=== PATIENT | male | born 1940 | race Caucasian/White ===

== ENCOUNTER → 2019-05-12 | Outpatient (CLI) | payer MEDICARE | END | disposition home or self-care (01) | LOC: LABWHC1 14:35 | PROVIDERS: ATTEND Orthopaedic Surgery | DX: Z01.812 Encounter for preprocedural laboratory examination (principal) | CPT/HCPCS: 87070 ==

== ENCOUNTER 2019-05-18 10:48 | Inpatient (IN) | payer BC, MEDICARE ==
[2019-05-08 11:53] VITALS: BMI 23.7
--- NOTE | 2019-05-17 17:56 | HP ---
HISTORY AND PHYSICAL REASON FOR ADMISSION: Surgery is scheduled for 05/18/2019 Donis Marin is an 79-year-old patient seen with symptomatic left knee osteoarthritis. We discussed options for treatment. He elected to proceed with left total knee arthroplasty. Consent regarding the procedure was obtained. Medical clearance was provided by Dr. Darryl Marmolejo. PAST MEDICAL HISTORY: Hypertension. PAST SURGICAL HISTORY: Jaw surgery. Hip surgery. MEDICATIONS: Daily medications: Metoprolol, Joiner, aspirin. ALLERGIES: None. SOCIAL HISTORY: Denies current tobacco use. PHYSICAL EXAMINATION: Evaluation of the left knee: His range of motion is -2/3-130. Tenderness along the lateral joint line crepitus, lateral patellofemoral compartments. Pain with patellofemoral compression. His collateral ligaments are stable. Hip rotation is slightly limited, but no pain. Distal neurovascular exam is intact. RADIOGRAPHS: Radiographs of the left knee reveal severe lateral and moderate patellofemoral compartment osteoarthritis. IMPRESSION: 1. Left knee osteoarthritis. 2. Hypertension. PLAN: Left total knee arthroplasty. Surgery is scheduled for 05/18/2019. MMODL / IJN: [id number] /
[~2019-05-18 10:48] MED LIST: ACETAMINOPHEN TAB 500 MG TAB PO ONE; HYDROmorphone 0.5 MG/0.5 ML SYRINGE IVP PRN; LIDOCAINE 1% 20 ML VIAL (10MG/ML) FOR IV START INTRADERMA PRN; MELOXICAM 7.5 MG TAB PO ONE; MIDAZOLAM 2 MG/2 ML VIAL IV PRN; ROPIVACAINE 246.25 MG, EPINEPHrine 0.5 MG, KETOROLAC 30 MG, cloNIDine HCL/PF 80 MCG, WA... MISCELLANE ONE; TRANEXAMIC ACID 1,000 MG in SODIUM CHLORIDE 0.9% 100 ML IVPB ONE
[2019-05-18] MEDS: LACTATED RINGERS 1,000 ML IV SCH ×3 (11:30→22:33)
[2019-05-18] MEDS ORDERED: ONDANSETRON 4 MG/2 ML VIAL IVP ONE (11:45)
[2019-05-18] MEDS ORDERED: DEXAMETHASONE SOD PHOSPHATE 10 MG/ML 1 ML VIAL IV ONE (11:46)
[2019-05-18] MEDS ORDERED: MIDAZOLAM (PF) 2 MG/2 ML VIAL IVP ONE (11:52)
[2019-05-18] MEDS ORDERED: fentaNYL (PF) 50 MCG/ML 2 ML AMP IVP ONE (11:53)
[2019-05-18] MEDS ORDERED: fentaNYL (PF) 50 MCG/ML 2 ML AMP ONE (12:24)
[2019-05-18] MEDS ORDERED: TRANEXAMIC ACID 1,000 MG/10 ML VIAL ONE (12:24)
[2019-05-18] MEDS ORDERED: MIDAZOLAM 2 MG/2 ML VIAL ONE (12:24)
[2019-05-18] MEDS ORDERED: SODIUM CHLORIDE 0.9% 100 ML BAG ONE (12:24)
[2019-05-18] MEDS ORDERED: ceFAZolin 3,000 MG in SODIUM CHLORIDE 0.9% IRRIGATIO 3,000 ML IRRIGATION ONE (12:28)
[2019-05-18] MEDS ORDERED: ROPIVACAINE 0.2%-NS ON-Q PUMP 1,090 MG, EMPTY PAIN BALL 1 EACH MISCELLANE PRN (13:11)
--- NOTE | 2019-05-18 13:14 | P.ANPRN ---
Procedure Note - Anesthesia - Nerve Block Performed Left Adductor Canal Infusion Time Out Performed: Yes Date of Procedure: 05/18/19 Procedure Start Time: 11:51 Location of Patient Procedure: PreOp Indication: Acute Post-Operative Pain, Requested by Surgeon Specifically requested for management of pain by DrMary Ann: Edmund Lazo Sedation Type: Sedate with meaningful contact maintained Preparation: Sterile Prep Position: Supine Catheter Depth at Skin (cm): 7 Catheter: Indwelling Needle Types: Pajunk Needle Gauge: 18 Ultrasound used to visualize needle placement: Yes Ultrasound used to observe medication spread: Yes Injectate: 0.5% Ropivacaine (see comment for volume) (20cc) Blood Aspirated: No Pain Paresthesia on Injection Noted: No Resistance on Injection: Normal Image Stored and Saved: Yes Events: Uneventful and Well Tolerated
--- NOTE | 2019-05-18 14:32 | P.OP ---
Date of Procedure: 05/18/19 Preoperative Diagnosis: Left knee osteoarthritis Postoperative Diagnosis: Left knee osteoarthritis Procedure(s) Performed: Left total knee arthroplasty Implants: 1. Microport evolution size 7 left cemented femur 2. Microport evolution size 7 left cemented tibial baseplate 3. Microport evolution size 7 left MP 10 mm polyethylene tibial insert 4. Microport advance 38 mm all polyethylene cemented patella Anesthesia: regional (Adductor canal catheter), local, spinal Surgeon: Edmund Lazo Commodity Analyst #1: Pepito Liriano Estimated Blood Loss (ml): 45 Pathology: other (Bone) Condition: stable Disposition: PACU Indications for Procedure: 79-year-old patient seen with symptomatic left knee osteoarthritis. After treatment options were discussed with him, he elected to proceed with total knee arthroplasty. Operative Findings: See description of procedure Description of Procedure: Patient was taken to the operative suite after having an adductor canal catheter placed by the department of anesthesia for postoperative pain management. Patient underwent a spinal anesthetic by the department of anesthesia. Patient was given preoperative IV intake antibiotics and TXA. A well-padded tourniquet was placed about the left lower extremity. The lower extremity was then prepped and draped in the normal sterile orthopedic fashion. The extremity was elevated, a tourniquet was insufflated to 300. A standard anterior incision was made sharply through skin. Dissection was taken down through the subcutaneous soft tissues down to the extensor mechanism. A medial arthrotomy was performed, patella was everted and knee was flexed. There was advanced osteoarthritis noted. I introduced my distal intramedullary femoral drill. I then introduced the distal femoral cutting jig. Harry THIBODEAUX secured the cutting jig with 2 pins. I held retractors in position while Harry THIBODEAUX performed the distal femoral resection through the guide area we now removed her distal femoral cutting guide. We now placed our 4-in-1 femoral cutting block and positioned and it was secured with 2 pins by Harry THIBODEAUX while I held the block in position. The distal femoral finishing was now completed. A proximal tibial cutting guide was positioned. I held the guide in the appropriate position with both hands well Harry THIBODEAUX inserted stabilizing pins into the guide. Proximal tibial cut was made. We now placed a trial femoral component into position, along with an appropriate size tibial tray and insert. We now took the knee through range of motion and had full extension good flexion and good overall soft tissue balance noted. The patella was everted and stabilized with 2 towel clips held by Harry THIBODEAUX while I performed a flush with patellar quad tendon utilizing a fresh sawblade. We templated the patella, appropriate drill holes were made. An appropriate trial patella was positioned, knee was taken through full range of motion with the patella tracking very nicely. The trial patella was removed. Drill holes were made through the femoral component. All trial components were removed after marking off the appropriate rotation of the tibia. Retractors were now positioned along the proximal tibia. An appropriate keel punch was made with the appropriate size tibial guide by myself on Harry THIBODEAUX assisted by holding retractors. At this point appropriate size implants were chosen and opened. The joint was irrigated copiously with pulse lavage mechanical irrigation. The posterior capsule was infiltrated with local analgesic. The wound was irrigated with pulse lavage mechanical irrigation. We mixed antibiotic methylmethacrylate. We placed the knee into flexion. We placed multiple retractors assisted by Harry THIBODEAUX to expose the proximal tibia. Once the methyl methacrylate was ready, the tibial component was cemented into place removing any excess methylmethacrylate form by both myself and Harry THIBODEAUX. The femoral component was cemented into place removing the removing any excess methylmethacrylate performed by both myself and Harry THIBODEAUX. We then inserted the appropriate size polyethylene tibial insert. We made sure that it was locked into position. We took the knee into full extension, and then back in a flexion making sure we had removed any excess methylmethacrylate. The patellar component was then cemented down and secured with clamp. Excess methylmethacrylate removed. We kept the knee in full extension, patellar clamp in position until methylmethacrylate had hardened. Once it had hardened the patellar clamp was removed. The knee was taken through full range of motion. The patella tracked nicely. There was good soft tissue balancing. The tourniquet was now released. Additional hemostasis was achieved via electrocautery. A second gram of TXA was given. The wound again was irrigated with pulse lavage mechanical irrigation. The superficial soft tissues were infiltrated local analgesic. The extensor mechanism was repaired with Vicryl. We checked the repair with range of motion and it was stable. The subcutaneous soft tissues were repaired with Vicryl in layers. The skin was approximated with pernio/Dermabond. Sterile dressings were applied followed by loose web roll and Nathan bandage. The patient was transferred to a bed, and taken to recovery in stable and satisfactory condition. Harry THIBODEAUX assisted with this complex procedure.
[2019-05-18] MEDS ORDERED: NALOXONE 0.4 MG/ML 1 ML VIAL IV PRN (14:33)
[2019-05-18] MEDS ORDERED: ONDANSETRON 4 MG/2 ML VIAL IVP PRN (14:33)
[2019-05-18] MEDS ORDERED: HYDROmorphone 0.5 MG/0.5 ML SYRINGE IVP PRN ×2 (14:33)
--- NOTE | 2019-05-18 15:59 | XR ---
Limited left knee HISTORY: Status post left knee arthroplasty 2 views the left knee Patient is status post left knee arthroplasty. There is anatomic alignment. Lucency in the soft tissu es is compatible with postop state. Vascular calcifications noted incidentally. IMPRESSION: Orthopedic follow-up.
[2019-05-18] MEDS: SENNOSIDES-DOCUSATE SODIUM 1 EACH TAB PO SCH (21:58)
[2019-05-18] MEDS: METOPROLOL TARTRATE 50 MG TAB PO SCH (21:58)
[2019-05-18] MEDS: SODIUM CHLORIDE 0.9% 1,000 ML IV SCH (23:44)
[2019-05-19 06:45] LABS: Basophils % (A) 0 %; Eosinophils % (A) 0 %; HCT 34.9 % (39.0-53.0); HGB 10.9 gm/dL (13.0-17.5); Lymphocytes # (A) 1.1 k/uL (1.0-4.8); Lymphocytes % (A) 12 %; MCH 30.3 pg (25.0-35.0); MCHC 31.4 g/dL (31.0-37.0); MCV 96.7 fL (80.0-100.0); Mean Platelet Volume 7.5; Monocytes # (A) 0.5 k/uL (0-1.0); Monocytes % (A) 5 %; Neutrophils # (A) 7.5 k/uL (1.3-7.7); Neutrophils % (A) 81 %; Platelet Count 200 k/uL (150-450); RBC 3.61 m/uL (4.30-5.90); RDW 12.8 % (11.5-15.5); WBC 9.2 k/uL (3.8-10.6)
--- NOTE | 2019-05-19 07:10 | P.PN ---
Progress Note - Text 05/19 650am 79-year-old male status post total knee replacement by Dr. Lazo. Patient has an On-Q pump for postop pain control with the solution running at 8 mL an hour and a VAS of 5. Plan is to continue On-Q pump infusion.
[2019-05-19] MEDS: HYDROcodone/APAP 7.5-325MG 1 EACH TAB PO PRN ×3 (08:24→20:08)
[2019-05-19] MEDS: MELOXICAM 7.5 MG TAB PO SCH (08:24)
[2019-05-19] MEDS: ENOXAPARIN 40 MG/0.4 ML SYRINGE SQ SCH (08:24)
[2019-05-19] MEDS: METOPROLOL TARTRATE 50 MG TAB PO SCH ×2 (08:25→20:07)
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
[2019-05-19] MEDS: SODIUM CHLORIDE 0.9% 1,000 ML IV SCH (10:20)
[2019-05-19] MEDS: LACTATED RINGERS 1,000 ML IV SCH (10:20)
--- NOTE | 2019-05-19 12:57 | P.PN ---
Subjective Progress Note Date: 05/19/19 Principal diagnosis: Status post left total knee arthroplasty Patient evaluated today at bedside, he is resting comfortably. He does note some discomfort in the knee. He is ambulating well with therapy, he has not done the stairs. Denies any chest pain or shortness of breath. Objective - Vital Signs Vital signs: Vital Signs Temp 97.7 F 05/19/19 07:00 Pulse 60 05/19/19 07:00 Resp 12 05/19/19 07:00 BP 164/62 05/19/19 07:00 Pulse Ox 95 05/19/19 07:00 Intake & Output 05/18/19 05/19/19 05/19/19 18:59 06:59 18:59 Intake Total 1101 100 Output Total 45 750 Balance 1056 -750 100 Intake: IV 1101 Oral 100 Output: Urine 750 Estimated Blood Loss 45 Other: Voiding Method Urinal # Voids 2 - Exam Left lower extremity: Incision is clean, dry, and intact. The exofin fusion tape is in good c ondition. There is minimal soft tissue swelling and ecchymosis surrounding the medial and lateral aspects of the incision. Calf is soft, no tenderness with palpation. Plantar flexion, dorsiflexion, EHL, FHL are intact. Sensory exam to light touch throughout the extremity is intact, dorsal pedis pulses 2+. - Labs CBC & Chem 7: 05/19/19 06:19 Labs: Abnormal Lab Results - Last 24 Hours (Table) 05/19/19 Range/Units 06:19 RBC 3.61 L (4.30-5.90) m/uL Hgb 10.9 L (13.0-17.5) gm/dL Hct 34.9 L (39.0-53.0) % Assessment and Plan Plan: Assessment: Postop day #1 status post left total knee arthroplasty Plan: Pain control, continue oral medication as needed GI and DVT prophylaxis, continue current medication Wound care instructions discussed Encourage incentive spirometer Continue working with physical therapy Medical recommendations Discharge planning: Hopeful discharge home tomorrow Time with Patient: Less than 30
[2019-05-19] MEDS: HYDROmorphone 0.5 MG/0.5 ML SYRINGE IVP PRN (17:46)
[2019-05-19] MEDS: SENNOSIDES-DOCUSATE SODIUM 1 EACH TAB PO SCH (20:08)
[2019-05-20] MEDS: HYDROmorphone 0.5 MG/0.5 ML SYRINGE IVP PRN (01:17)
[2019-05-20] MEDS: HYDROcodone/APAP 7.5-325MG 1 EACH TAB PO PRN ×3 (06:26→19:35)
[2019-05-20] MEDS: METOPROLOL TARTRATE 50 MG TAB PO SCH ×2 (08:52→19:37)
[2019-05-20] MEDS: MELOXICAM 7.5 MG TAB PO SCH (08:52)
[2019-05-20] MEDS: ENOXAPARIN 40 MG/0.4 ML SYRINGE SQ SCH (08:52)
[2019-05-20] MEDS: SODIUM CHLORIDE 0.9% 1,000 ML IV SCH (08:58)
--- NOTE | 2019-05-20 11:40 | P.PN ---
Subjective Progress Note Date: 05/20/19 Principal diagnosis: Status post left total knee arthroplasty Patient evaluated today at bedside, he is resting comfortably. He does note some discomfort in the knee. I did increase the oral pain medication He is ambulating well with therapy, he has not done the stairs. Denies any chest pain or shortness of breath. Objective - Vital Signs Vital signs: Vital Signs Temp 98.2 F 05/20/19 07:00 Pulse 71 05/20/19 08:00 Resp 14 05/20/19 07:00 BP 145/58 05/20/19 07:00 Pulse Ox 95 05/20/19 07:00 Intake & Output 05/19/19 05/20/19 05/20/19 18:59 06:59 18:59 Intake Total 100 Output Total 1025 Balance 100 -1025 Intake: Oral 100 Output: Urine 1025 Other: Voiding Method Urinal # Voids 3 - Exam Left lower extremity: Incision is clean, dry, and intact. The exofin fusion tape is in good condition. There is minimal soft tissue swelling and ecchymosis surrounding the medial and lateral aspects of the incision. Calf is soft, no tenderness with palpation. Plantar flexion, dorsiflexion, EHL, FHL are intact. Sensory exam to light touch throughout the extremity is intact, dorsal pedis pulses 2+. - Labs CBC & Chem 7: 05/19/19 06:19 Assessment and Plan Plan: Assessment: Postop day #2 status post left total knee arthroplasty Plan: Pain control, did increase oral pain medication GI and DVT prophylaxis, continue current medication Wound care instructions discussed Encourage incentive spirometer Continue working with physical therapy Medical recommendations Discharge planning: Hopeful discharge home today Time with Patient: Less than 30
[2019-05-20] MEDS: LACTATED RINGERS 1,000 ML IV SCH (13:02)
[2019-05-20] MEDS: SENNOSIDES-DOCUSATE SODIUM 1 EACH TAB PO SCH (19:37)
[2019-05-21] MEDS: SODIUM CHLORIDE 0.9% 1,000 ML IV SCH ×2 (03:00→22:40)
[2019-05-21] MEDS: HYDROcodone/APAP 7.5-325MG 1 EACH TAB PO PRN (04:41)
[2019-05-21 07:18] LABS: Basophils % (A) 0 %; Eosinophils # (A) 0.1 k/uL (0-0.7); Eosinophils % (A) 2 %; HGB 11.7 gm/dL (13.0-17.5); Lymphocytes # (A) 1.1 k/uL (1.0-4.8); Lymphocytes % (A) 14 %; MCH 32.1 pg (25.0-35.0); MCHC 33.5 g/dL (31.0-37.0); MCV 95.9 fL (80.0-100.0); Mean Platelet Volume 7.5; Monocytes # (A) 0.5 k/uL (0-1.0); Monocytes % (A) 7 %; Neutrophils # (A) 5.8 k/uL (1.3-7.7); Neutrophils % (A) 76 %; Platelet Count 205 k/uL (150-450); RBC 3.65 m/uL (4.30-5.90); RDW 12.8 % (11.5-15.5); WBC 7.7 k/uL (3.8-10.6)
[2019-05-21] MEDS: MELOXICAM 7.5 MG TAB PO SCH (07:59)
[2019-05-21] MEDS: METOPROLOL TARTRATE 50 MG TAB PO SCH ×2 (08:00→20:28)
[2019-05-21] MEDS: ENOXAPARIN 40 MG/0.4 ML SYRINGE SQ SCH (08:00)
[2019-05-21] MEDS ORDERED: IBUPROFEN 600 MG TAB PO PRN (10:03)
--- NOTE | 2019-05-21 11:12 | P.PN ---
Subjective Progress Note Date: 05/21/19 Principal diagnosis: Status post left total knee arthroplasty Patient evaluated today at bedside. Patient's pain is improved since yesterday. 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 He is interested in staying at a rehab facility for a short period time. Denies any chest pain or shortness of breath. Objective - Vital Signs Vital signs: Vital Signs Temp 98 F 05/21/19 07:00 Pulse 69 05/21/19 07:00 Resp 16 05/21/19 07:00 BP 133/65 05/21/19 07:00 Pulse Ox 94 L 05/21/19 07:00 Intake & Output 05/20/19 05/21/19 05/21/19 18:59 06:59 18:59 Output Total 500 Balance -500 Output: Urine 500 Other: Voiding Method Toilet Urinal # Voids 3 1 - Exam Left lower extremity: Incision is clean, dry, and intact. The exofin fusion tape is in good conditio n. There is minimal soft tissue swelling and ecchymosis surrounding the medial and lateral aspects of the incision. Calf is soft, no tenderness with palpation. Plantar flexion, dorsiflexion, EHL, FHL are intact. Sensory exam to light touch throughout the extremity is intact, dorsal pedis pulses 2+. - Labs CBC & Chem 7: 05/21/19 07:00 Labs: Abnormal Lab Results - Last 24 Hours (Table) 05/21/19 Range/Units 07:00 RBC 3.65 L (4.30-5.90) m/uL Hgb 11.7 L (13.0-17.5) gm/dL Hct 35.0 L (39.0-53.0) % Assessment and Plan Plan: Assessment: Postop day #3 status post left total knee arthroplasty Plan: Pain control, did increase oral pain medication GI and DVT prophylaxis, continue current medication Wound care instructions discussed Encourage incentive spirometer Continue working with physical therapy Medical recommendations Discharge planning: Discussed with case management for rehab placement, this is in the works Time with Patient: Less than 30
[2019-05-21] MEDS: HYDROcodone/APAP 5-325MG 1 EACH TAB PO PRN ×2 (13:05→20:28)
[2019-05-21] MEDS: LACTATED RINGERS 1,000 ML IV SCH (14:12)
--- NOTE | 2019-05-21 19:11 | P.PN ---
Subjective Progress Note Date: 05/21/19 Status post left total knee arthroplasty Donis Marin is an 79 yo M with PMH of OA, HTN. He is POD#1 after a scheduled L TKA. He tolerated the procedure well and has been ambulatory today. Pain is well controlled with [place]. He does endorse discomfort with knee flexion. Denies fever, chills, shortness of breath, leg swelling or tenderness. 05/21/2019 sitting up in chair, pain control improving. Denies chest pain, palpitations or shortness of breath. Vital signs stable. Afebrile. Concerned about going home and requesting subacute rehab. Objective - Vital Signs Vital signs: Vital Signs Temp 98 F 05/21/19 07:00 Pulse 69 05/21/19 07:00 Resp 16 05/21/19 07:00 BP 133/65 05/21/19 07:00 Pulse Ox 94 L 05/21/19 07:00 Intake & Output 05/20/19 05/21/19 05/21/19 18:59 06:59 18:59 Output Total 500 Balance -500 Output: Urine 500 Other: Voiding Method Toilet Urinal # Voids 3 1 - Exam General: well nourished, well developed, NAD. Vitals reviewed Eyes: PERRL, EOMI, conjunctiva normal HENT: normocephalic, mucus membranes moist Neck: supple, no JVD Lungs: normal respiratory effort, no wheezes or rales CV: Regular rate and rhythm, no murmur. Peripheral pulses 2+ Abdomen: soft, nondistended, no organomegaly Lymph: no cervical or axillary LAD MSK: LLE incision c/d/i. No edema Skin: warm and dry. Neuro: A&Ox3, normal mood and affect - Labs CBC & Chem 7: 05/21/19 07:00 Labs: Abnormal Lab Results - Last 24 Hours (Table) 05/21/19 Range/Units 07:00 RBC 3.65 L (4.30-5.90) m/uL Hgb 11.7 L (13.0-17.5) gm/dL Hct 35.0 L (39.0-53.0) % Assessment and Plan Assessment: (1) Hypertension Current Visit: Yes Status: Acute Code(s): I10 - ESSENTIAL (PRIMARY) HYPERTENSION SNOMED Code(s): 09699990 (2) History of DVT (deep vein thrombosis) Current Visit: Yes Status: Acute Code(s): Z86.718 - PERSONAL HISTORY OF OTHER VENOUS THROMBOSIS AND EMBOLISM SNOMED Code(s): 229859142 (3) Osteoarthritis of left knee Current Visit: Yes Status: Acute Code(s): M17.12 - UNILATERAL PRIMARY OSTEOARTHRITIS, LEFT KNEE SNOMED Code(s): 827083879499812 (4) Status post total left knee replacement Current Visit: Yes Status: Acute Code(s): Z96.652 - PRESENCE OF LEFT ARTIF ICIAL KNEE JOINT SNOMED Code(s): 4587895124650 Plan: Continue on current medication regime ,monitoring and symptomatic treatment. PT/OT. Pain management/anticoagulation as per orthopedic surgery. Motrin added to med regime if okay with orthopedics. Discharge planning in progress as per primary. Follow-up with PCP in one week after discharge from subacute rehab. The impression and plan of care has been dictated as directed. : I performed a history and examination of this patient, discussed the same with the dictator. I agree with the dictator's note ,documented as a scribe. Any additional findings or plans will be noted.
[2019-05-21] MEDS: SENNOSIDES-DOCUSATE SODIUM 1 EACH TAB PO SCH (20:29)
[2019-05-22 03:17] VITALS: RESP 16
[2019-05-22] MEDS: HYDROcodone/APAP 5-325MG 1 EACH TAB PO PRN (06:15)
[2019-05-22 08:00] VITALS: BP 161/60; PULSE 81; TEMP 97.5
[2019-05-22] MEDS: METOPROLOL TARTRATE 50 MG TAB PO SCH (08:45)
[2019-05-22] MEDS: ENOXAPARIN 40 MG/0.4 ML SYRINGE SQ SCH (08:46)
[2019-05-22] MEDS: MELOXICAM 7.5 MG TAB PO SCH (08:46)
[2019-05-22] MEDS ORDERED: guaiFENesin 600 MG TABLET.ER PO PRN (10:23)
[2019-05-22] MEDS: HYDROcodone/APAP 7.5-325MG 1 EACH TAB PO PRN (12:04)
--- NOTE | 2019-05-22 12:27 | P.PN ---
Subjective Progress Note Date: 05/22/19 Principal diagnosis: Status post left total knee arthroplasty Patient evaluated today at bedside. Patient's pain has continued to improve. Denies any chest pain or shortness of breath. Objective - Vital Signs Vital signs: Vital Signs Temp 97.5 F L 05/22/19 07:00 Pulse 81 05/22/19 07:00 Resp 16 05/22/19 07:00 BP 161/60 05/22/19 07:00 Pulse Ox 95 05/22/19 07:00 Intake & Output 05/21/19 05/22/19 05/22/19 18:59 06:59 18:59 Intake Total 236 Output Total 400 570 Balance -164 -570 Intake: Oral 236 Output: Urine 400 570 Other: Voiding Method Toilet Urinal # Voids 1 - Exam Left lower extremity: Incision is clean, dry, and intact. The exofin fusion tape is in good condition. There is minimal soft tissue swelling and ecchymosis surrounding the medial and lateral aspects of the incision. Calf is soft, no tenderness with palpation. Plantar flexion, dorsiflexion, EHL, FHL are intact. Sensory exam to light touch throughout the extremity is intact, dorsal pedis pulses 2+. - Labs CBC & Chem 7: 05/21/19 07:00 Assessment and Plan Plan: Assessment: Postop day #4 status post left total knee arthroplasty Plan: Pain control, discharge on [place] 7.5/325 GI and DVT prophylaxis, aspirin 81 mg twice a day Wound care instructions discussed Encourage incentive spirometer Continue working with physical therapy Medical recommendations Discharge planning: Discharge to rehab today Time with Patient: Less than 30
--- NOTE | 2019-05-22 12:30 | P.DS ---
Providers Date of admission: 05/18/2019 Expected date of discharge: 05/22/19 Attending physician: Edmund Lazo Consults: 05/18/19 14:33 Consult Physician Routine Consulting Provider: Darryl Marmolejo Reason/Comments: Medical management Do you want consulting provider notified?: Yes Primary care physician: Paul Eli Hospital Course: Date of admission: 05/18/2019 Date of discharge: 05/22/2019 Admission diagnosis: Status post left total knee arthroplasty Discharge diagnosis: Same Attending physician: Dr. Lazo Surgical procedures: Left total knee arthroplasty Brief history: Patient is a 79-year-old male with a history of progressive primary left knee osteoarthritis. At this point patient has failed conservative treatment measures and has opted to proceed with a elective left total knee arthroplasty. Hospital course: Details of patient's surgery can be found in operative report. Patient tolerated the procedure well and was subsequently transported to orthopedic floor. Patient's orthopeidc and medical care was provided daily. Patient had daily laboratory tests performed for evaluation of overall blood counts. Patient had daily physical therapy to include strengthening range of motion as well as education with walker ambulation. Patient had daily CPM usage as part of their physical therapy program. Patient was treated with Lovenox for their postoperative DVT prophylaxis during their inpatient stay. Patient was noted to have a relatively uneventful postoperative course. Patient reported satisfactory pain control with oral pain medications by postoperative day 0. Patient showed satisfactory progress with physical therapy. Patient moved steadily through the program and had no difficulty meeting the goals by postoperative day 3. Given patient's otherwise satisfactory course and having met physical therapy goals, plan is to discharge patient to rehab on postoperative day 4. Discharge condition/disposition: Patient will be discharged rehab in stable condition. Discharge medications: Instructions are given on resumption of patient's normal daily medications per primary care recommendation, in addition patient will be prescribed [place] 7.5 mg/325 mg, Colace 100 mg, Pepcid 20 mg, aspirin 81 mg. Discharge instructions: 1. Wound care and infection precautions, keep incision dry and covered while showering, no lotions, creams, moisturizers. No soaking, tubs, pools, hottubs. Do not scrub over the incision. 2. Weight-bear as tolerated with walker / cane until follow-up. 3. Ice and elevate when necessary. Do not exceed 20 minutes per hour with ice pack. 4. Utilize compression sleeve until seen at first follow up appointment. 5. Visiting nursing care. 6. Home physical therapy. 7. Pain meds and anticoagulants per prescription. 8. Pain medication has potential to cause constipation. Increase oral fluid and fiber intake. Contact primary care provider if you have not had a bowel movement within 48 hours after discharge 9. No anti-inflammatory medication until discussed at first post operative visit, this including Motrin, Aleve, Mobic, Diclofenac. 10. Follow up in office at 2 weeks postop with Harry Liriano PA-C 11. Follow up with your primary care doctor 7-10 days after discharge. 12. Contact [facility] with any questions, . Procedures: Left total knee arthroplasty Patient Condition at Discharge: Good Plan - Discharge Summary Discharge Rx Participant: Yes New Discharge Prescriptions: New guaiFENesin [Mucinex] 600 mg PO Q12HR PRN tablet.er PRN Reason: Cough Aspirin [Adult Low Dose Aspirin EC] 81 mg PO BID #60 tablet. Docusate [Colace] 100 mg PO DAILY #30 capsule HYDROcodone/APAP 7.5-325MG [[place] 7.5] 1 - 2 each PO Q6HR PRN #56 tab PRN Reason: Pain Famotidine [Pepcid] 20 mg PO DAILY #30 tablet Continue Aspirin 81 mg PO DAILY Metoprolol Tartrate [Lopressor] 100 mg PO QAM Metoprolol Tartrate [Lopressor] 50 mg PO HS Discharge Medication List Aspirin 81 mg PO DAILY 04/11/15 [History] Metoprolol Tartrate [Lopressor] 50 mg PO HS 05/08/19 [History] Metoprolol Tartrate [Lopressor] 100 mg PO QAM 05/08/19 [History] Aspirin [Adult Low Dose Aspirin EC] 81 mg PO BID #60 tablet. 05/22/19 [Rx] Docusate [Colace] 100 mg PO DAILY #30 capsule 05/22/19 [Rx] Famotidine [Pepcid] 20 mg PO DAILY #30 tablet 05/22/19 [Rx] HYDROcodone/APAP 7.5-325MG [[place] 7.5] 1 - 2 each PO Q6HR PRN #56 tab 05/22/19 [Rx] guaiFENesin [Mucinex] 600 mg PO Q12HR PRN tablet.er 05/22/19 [Rx] Follow up Appointment(s)/Referral(s): Darryl Marmolejo MD [STAFF PHYSICIAN] - 1 Week (After discharge from subacute rehab) Pepito Liriano PAC [PHYSICIAN CRAYON PAINTER] - 06/03/19 2:20 pm Patient Instructions/Handouts: Joint Replacement Surgery (DC), Knee Replacement (DC) Activity/Diet/Wound Care/Special Instructions: *Please call [facility] once home to arrange delivery of continuous passive motion (CPM) machine - [phone] Orthopedic Discharge Instructions: 1. Wound care and infection precautions, keep incision dry and covered while showering, no lotions, creams, moisturizers. No soaking, pools, hot tubs. Do not scrub over incision. 2. Weight-bear as tolerated with walker / cane until follow-up. 3. Ice and elevate when necessary. Do not exceed 20 minutes per hour with ice pack. 4. Utilize compression sleeve until seen at first follow up appointment. 5. Pain meds and anticoagulants per prescription. 6. Pain medication has potential to cause constipation. Increase oral fluid and fiber intake. Contact primary care provider if you have not had a bowel movement within 48 hours after discharge. 7. No anti-inflammatory medication until discussed at first post operative visit, this including Motrin, Aleve, Mobic, Diclofenac. 8. Follow up in office at 2 weeks postop with Harry Liriano PA-C 9. Follow up with your primary care doctor 7-10 days after discharge. 10. Contact [facility] with any questions, . Discharge Disposition: TRANSFER TO SNF/ECF
[2019-05-22] MEDS: LACTATED RINGERS 1,000 ML IV SCH (14:18)
== END 2019-05-22 14:50 | DRG 470 ==
LOC: OR 10:48 → 4SSUR 14:36 → OR 05-19 12:55 → UNDOADMIN 05-19 12:55
PROVIDERS: ADMIT Orthopaedic Surgery; ATTEND Orthopaedic Surgery
PROC: 0SRD0J9 Replacement of Left Knee Joint with Synthetic Substitute, Cemented, Open Approach (ICD-10-PCS; principal; 2019-05-18 12:40)
DX: M17.12 Unilateral primary osteoarthritis, left knee (principal); H91.90 Unspecified hearing loss, unspecified ear; I10 Essential (primary) hypertension; Z79.82 Long term (current) use of aspirin; Z86.718 Personal history of other venous thrombosis and embolism; Z87.891 Personal history of nicotine dependence; Z79.891 Long term (current) use of opiate analgesic; Z79.899 Other long term (current) drug therapy; Z91.013 Allergy to seafood
CPT/HCPCS: 64448; 76942; 85025; 88300

== ENCOUNTER 2019-07-14 08:10 | Emergency (ER) | payer MEDICARE, OTHER ==
[2019-07-14] MEDS ORDERED: HYDROmorphone 1 MG/ML 1 ML SYRINGE IM STA (08:25)
[2019-07-14 08:26] VITALS: TEMP 98.1
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
--- NOTE | 2019-07-14 09:09 | XR ---
EXAMINATION TYPE: XR Hip RT and AP Pelvis DATE OF EXAM: 07/14/2019 COMPARISON: NONE HISTORY: Right hip pain and pelvic pain with no known injury TECHNIQUE: A single AP view of the pelvis is obtained. Two views of the right hip are obtained. FINDINGS: There is diffuse osseous demineralization and advanced degenerative changes of the osseous structures including the lumbosacral junction and bilateral hips with right hip arthroplasty and post surgical change present. 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 Patient rotation obs cures the right sacroiliac joint and medial wall the acetabulum. No gross evidence of acute fracture is seen. No displacement of the right hip arthroplasty. No evidence of hardware fracture or loosening . Severe atherosclerosis. IMPRESSION: 1. No gross acute fracture or dislocation in the pelvis or right hip. 2. Extensive osseous demineralization, advanced degenerative changes of the osseous structures postsu rgical changes of the right hip with heterotopic ossification bilaterally, advanced atherosclerosis, and rotation limiting evaluation of the right hemipelvis.
[2019-07-14 10:30] VITALS: BP 167/68; PULSE 65; RESP 18
[2019-07-14] MEDS ORDERED: ACET/COD 300 MG/30 MG STARTER PACK 6 TAB BTL PO STA (10:31)
== END 2019-07-14 10:55 | disposition home or self-care (01) ==
LOC: EC 08:10 → SUPCPDRO 08:10 → EC 10:55
DX: G89.29 Other chronic pain (principal); M54.5 Low back pain; M25.551 Pain in right hip; I10 Essential (primary) hypertension; Z79.82 Long term (current) use of aspirin; Z79.899 Other long term (current) drug therapy; Z86.718 Personal history of other venous thrombosis and embolism; Z87.891 Personal history of nicotine dependence; Z91.013 Allergy to seafood; Z96.641 Presence of right artificial hip joint; Z96.659 Presence of unspecified artificial knee joint
CPT/HCPCS: 73502; 96372; 99284; J1170

== ENCOUNTER 2021-05-22 11:54 | Emergency (ER) | payer MEDICARE, OTHER ==
[2021-05-22] MEDS ORDERED: SODIUM CHLORIDE 0.9% 500 ML 500 ML IV STA (12:27)
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
[2021-05-22 12:39] LABS: Basophils % (A) 0 %; Eosinophils # (A) 0.3 k/uL (0-0.7); Eosinophils % (A) 5 %; HCT 39.1 % (39.0-53.0); HGB 12.6 gm/dL (13.0-17.5); Lymphocytes # (A) 1.1 k/uL (1.0-4.8); Lymphocytes % (A) 20 %; MCH 31.4 pg (25.0-35.0); MCHC 32.1 g/dL (31.0-37.0); MCV 97.9 fL (80.0-100.0); Mean Platelet Volume 8.2; Monocytes # (A) 0.4 k/uL (0-1.0); Monocytes % (A) 7 %; Neutrophils # (A) 3.6 k/uL (1.3-7.7); Neutrophils % (A) 67 %; Platelet Count 229 k/uL (150-450); RDW 12.6 % (11.5-15.5); WBC 5.4 k/uL (3.8-10.6)
[2021-05-22 12:59] LABS: INR 0.9 (<1.2); Prothrombin Time 10.2 sec (9.0-12.0)
[2021-05-22 13:02] LABS: Albumin 3.6 g/dL (3.5-5.0); Calcium 9.1 mg/dL (8.4-10.2); Potassium 4.6 mmol/L (3.5-5.1); Total Bilirubin 0.4 mg/dL (0.2-1.3); Total Protein 6.5 g/dL (6.3-8.2)
--- NOTE | 2021-05-22 13:10 | CT ---
EXAMINATION TYPE: CT brain wo con DATE OF EXAM: 05/22/2021 COMPARISON: None HISTORY: Neuro deficit, acute, stroke suspected CT DLP: 1084.4 mGycm Automated exposure control for dose reduction was used. Helical imaging through the brain. FINDINGS: There is no hemorrhage or hydrocephalus. Cerebrovascular calcifications are present. Periventricular white matter shows patchy low attenuation. This cortical atrophy. The calvarium is intact. Paranasal sinuses and mastoid air cells as visualized are unremarkable only for some minimal inflammatory vail e in the sphenoid sinus. IMPRESSION: NO ACUTE ABNORMALITY. AGE-RELATED CHANGES AND PROBABLE CHRONIC SMALL VESSEL ISCHEMIA. CONSIDER MRI FO R BETTER EVALUATION.
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
--- NOTE | 2021-05-22 13:19 | XR ---
AP pelvis HISTORY: Trauma and pain View of the pelvis correlating to pelvis dated 07/14/2019 There is no significant interval change. Protrusio abnormality noted of the patient's acetabular comp onent of a right hip arthroplasty, postoperative changes are noted to the proximal right femur, heter otopic new bone formation is present about the hips. There is degenerative disc change in the visuali zed lower spine with spinal curvature. Distortion of the right ilium and acetabulum, postoperative ch jai is similar in appearance. There may be a component of acetabular femoral impingement on the left , remodeling of the left femoral head is noted. Probable phleboliths, vascular calcific lesions prese nt within the pelvis. impression: Stable findings, no acute fracture or dislocation is evident
[2021-05-22] MEDS ORDERED: ASPIRIN 325 MG TAB PO STA (13:24)
[2021-05-22 14:16] VITALS: BP 158/70; PULSE 55; RESP 17; TEMP 98.6
== END 2021-05-22 14:22 | disposition home or self-care (01) ==
LOC: EC 11:54
DX: G45.9 Transient cerebral ischemic attack, unspecified (principal); I10 Essential (primary) hypertension; Z91.013 Allergy to seafood; Z79.899 Other long term (current) drug therapy; W19.XXXA Unspecified fall, initial encounter
CPT/HCPCS: 36415; 70450; 71046; 72170; 80053; 84484; 85025; 85610; 85730; 93005; 99285

== ENCOUNTER 2022-02-25 20:55 | Emergency (ER) | payer MEDICARE, OTHER ==
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
[2022-02-25 22:18] LABS: Basophils # (A) 0.1 k/uL (0-0.2); Basophils % (A) 1 %; Eosinophils # (A) 0.2 k/uL (0-0.7); Eosinophils % (A) 2 %; HCT 39.3 % (39.0-53.0); HGB 12.7 gm/dL (13.0-17.5); Lymphocytes # (A) 1.4 k/uL (1.0-4.8); Lymphocytes % (A) 18 %; MCH 31.1 pg (25.0-35.0); MCHC 32.3 g/dL (31.0-37.0); MCV 96.4 fL (80.0-100.0); Mean Platelet Volume 8.6; Monocytes # (A) 0.6 k/uL (0-1.0); Monocytes % (A) 7 %; Neutrophils # (A) 5.4 k/uL (1.3-7.7); Neutrophils % (A) 71 %; Platelet Count 236 k/uL (150-450); RBC 4.08 m/uL (4.30-5.90); RDW 12.8 % (11.5-15.5); WBC 7.6 k/uL (3.8-10.6)
[2022-02-25 22:29] LABS: Albumin 4.3 g/dL (3.5-5.0); Calcium 8.9 mg/dL (8.4-10.2); Potassium 4.6 mmol/L (3.5-5.1); Total Bilirubin 0.3 mg/dL (0.2-1.3); Total Protein 7.4 g/dL (6.3-8.2)
--- NOTE | 2022-02-25 22:48 | XR ---
EXAMINATION TYPE: XR chest 1V portable DATE OF EXAM: 02/25/2022 COMPARISON: 05/22/2021 HISTORY: Altered mental status TECHNIQUE: FINDINGS: Heart is normal. Lungs are clear of infiltrate. No heart failure. There are no hilar masses . The bony thorax is intact. IMPRESSION: Normal chest. No change.
--- NOTE | 2022-02-25 22:51 | CT ---
EXAMINATION TYPE: CT brain wo con DATE OF EXAM: 02/25/2022 COMPARISON: 05/22/2021 HISTORY: ams, loss of balance CT DLP: 1173.4 mGycm Automated exposure control for dose reduction was used. There is some cerebral cortical atrophy. There is no mass effect nor Shift. No sign of intracranial hemorrhage. The calvarium is intact. There is normal aeration of the m astoid sinuses. IMPRESSION: Cerebral atrophy. No acute intracranial abnormality. No adverse change.
--- NOTE | 2022-02-25 22:52 | XR ---
EXAMINATION TYPE: XR humerus LT DATE OF EXAM: 02/25/2022 COMPARISON: NONE HISTORY: Pain TECHNIQUE: 4 views FINDINGS: There is spurring at the glenohumeral joint. There is narrowing of the shoulder joint space s. The elbow joint is intact. There is spurring on the olecranon process of the ulna. No sign of elbo w joint effusion. IMPRESSION: No acute abnormality of the left humerus. 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
[2022-02-26 00:33] VITALS: BP 199/76; PULSE 67; RESP 16; TEMP 97.9
== END 2022-02-26 00:32 | disposition home or self-care (01) ==
LOC: EC 20:55
DX: T14.8XXA Other injury of unspecified body region, initial encounter (principal); Z86.718 Personal history of other venous thrombosis and embolism; I10 Essential (primary) hypertension; Z79.82 Long term (current) use of aspirin; Z91.013 Allergy to seafood; Z79.899 Other long term (current) drug therapy; W19.XXXA Unspecified fall, initial encounter; Y92.019 Unspecified place in single-family (private) house as the place of occurrence of the external cause
CPT/HCPCS: 36415; 70450; 71045; 80053; 82550; 82553; 83605; 85025; 93005; 99285

== ENCOUNTER 2022-04-15 05:05 | Observation (INO) | payer MEDICARE, OTHER ==
[2022-04-15 05:47] LABS: Basophils % (A) 0 %; Eosinophils # (A) 0.1 k/uL (0-0.7); Eosinophils % (A) 1 %; HCT 41.6 % (39.0-53.0); HGB 12.9 gm/dL (13.0-17.5); Lymphocytes # (A) 1.3 k/uL (1.0-4.8); Lymphocytes % (A) 13 %; MCH 30.2 pg (25.0-35.0); MCHC 31.1 g/dL (31.0-37.0); MCV 97.1 fL (80.0-100.0); Mean Platelet Volume 8.4; Monocytes # (A) 0.6 k/uL (0-1.0); Monocytes % (A) 6 %; Neutrophils # (A) 7.8 k/uL (1.3-7.7); Neutrophils % (A) 79 %; Platelet Count 257 k/uL (150-450); RBC 4.28 m/uL (4.30-5.90); RDW 13.5 % (11.5-15.5); WBC 9.8 k/uL (3.8-10.6)
[2022-04-15 05:59] LABS: Albumin 4.3 g/dL (3.5-5.0); Calcium 9.1 mg/dL (8.4-10.2); Potassium 4.1 mmol/L (3.5-5.1); Total Bilirubin 0.3 mg/dL (0.2-1.3); Total Protein 7.3 g/dL (6.3-8.2)
[2022-04-15 06:06] LABS: Appearance,Urine Clear (Clear); Bilirubin,Urine Negative (Negative); Blood,Urine Negative (Negative); Color,Urine Yellow; Glucose,Urine (UA) 2+ (Negative); Hyaline Casts,Urine 41 /lpf (0-2); Ketones,Urine Negative (Negative); Leukocyte Esterase,Urine Negative (Negative); Mucus,Urine Occasional /hpf; Nitrite,Urine Negative (Negative); Protein,Urine 1+ (Negative); RBC,Urine 1 /hpf (0-5); Specific Gravity,Urine 1.026 (1.001-1.035); Squamous Epithelial Cell,Urine <1 /hpf (0-4); Urobilinogen,Urine <2.0 mg/dL (<2.0); WBC,Urine 1 /hpf (0-5)
[2022-04-15 06:11] LABS: Amphetamine Screen,Urine Not Detected (NotDetected); Barbiturate Screen,Urine Not Detected (NotDetected); Benzodiazepines Screen,Urine Not Detected (NotDetected); Cocaine Screen,Urine Not Detected (NotDetected); Methadone Screen, Urine Not Detected (NotDetected); Opiate Screen,Urine Not Detected (NotDetected); Oxycodone Screen, Urine Not Detected (NotDetected); Phencyclidine Screen,Urine Not Detected (NotDetected); Tricyclic Antidepressant,Urine Not Detected (NotDetected); Urn Cannabinoid Scrn Not Detected (NotDetected)
[2022-04-15 06:18] LABS: INR 0.9 (<1.2); Partial Thromboplastin Time 22.3 sec (22.0-30.0); Prothrombin Time 10.2 sec (9.0-12.0)
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
[2022-04-15] MEDS ORDERED: HEPARIN SODIUM 1,000 UN/ML (10ML VL) IV PRN (06:37)
[2022-04-15] MEDS ORDERED: HEPARIN SODIUM 1,000 UN/ML (10ML VL) IV ONE (06:37)
[2022-04-15] MEDS ORDERED: LORazepam 2 MG/ML INJ IV STA (06:48)
--- NOTE | 2022-04-15 07:56 | CT ---
EXAMINATION TYPE: CT brain wo con CT DLP: 1217.4 mGycm, Automated exposure control for dose reduction was used. DATE OF EXAM: 04/15/2022 7:48 AM COMPARISON: . CLINICAL INDICATION:Male, 81 years old with history of ams, Altered mental status TECHNIQUE: Brain: Axial CT images of the brain were obtained with coronal and sagittal reformats created and rev iewed. Contrast used: None. Oral contrast used: None. FINDINGS: Brain: Extra-axial spaces: No abnormal extra-axial fluid collections. Ventricular system: Within normal limits Cerebral parenchyma: No acute intraparenchymal hemorrhage or mass effect. The lopez-white junction is well differentiated. Scattered hypoattenuating areas are seen within the white matter. Cerebellum: Unremarkable. Mass effect: No evidence of midline shift. Intracranial vasculature: Atherosclerotic calcifications of the intracranial vessels. Soft tissues: Normal. Calvarium/osseous structures: No depressed skull fracture. Paranasal sinuses and mastoid air cells: Mild scattered paranasal sinus disease. Visualized orbits: Orbital contents are intact. IMPRESSION: No acute intracranial process. Mild diffuse age-related cerebral atrophy and chronic small vessel isc hemic changes
[2022-04-15] MEDS ORDERED: LORazepam 0.5 MG TAB PO PRN (08:28)
[2022-04-15] MEDS ORDERED: NALOXONE 0.4 MG/ML 1 ML VIAL IV PRN (08:28)
[2022-04-15] MEDS ORDERED: ACETAMINOPHEN TAB 325 MG TAB PO PRN (08:28)
[2022-04-15] MEDS ORDERED: ASPIRIN 81 MG PO STA (08:30)
[2022-04-15] MEDS: HEPARIN SOD,PORK IN 0.45% NACL 25,000 UNIT in 0.45% NACL 1 250ML.BAG IV SCH (09:20)
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
[2022-04-15] MEDS: METOPROLOL TARTRATE 50 MG TAB PO SCH (21:20)
[2022-04-16] MEDS ORDERED: ASPIRIN 325 MG TAB PO SCH (09:00)
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
[2022-04-16] MEDS: METOPROLOL TARTRATE 50 MG TAB PO SCH (13:05)
[2022-04-16] MEDS: HEPARIN SOD,PORK IN 0.45% NACL 25,000 UNIT in 0.45% NACL 1 250ML.BAG IV SCH (13:05)
[2022-04-16 13:11] VITALS: BP 125/67; RESP 16; TEMP 98
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
[2022-04-16 14:40] VITALS: PULSE 63
--- NOTE | 2022-04-17 07:40 | DS ---
DISCHARGE SUMMARY FINAL DIAGNOSES: 1. Change in mental status, possible psychosis and paranoid ideations with petition by police. 2. Acute [id number]-elevation myocardial infarction. 3. Hypertension. 4. Deep venous thrombosis prophylaxis. DISCHARGE CONDITION: The patient left the hospital AGAINST MEDICAL ADVICE. HISTORY OF PRESENT ILLNESS: This 81-year-old gentleman with past medical history of multiple problems, admitted with change in mental status and as well as possible psychosis. The patient also had multiple medical issues as listed above; however, the psych Dr. Araiza saw the patient and cleared the patient and apparently the patient left the hospital against medical advice along with a friend. Please refer to the multiple progress notes and staff notes for further details. The prognosis is extremely guarded; however, the patient is not willing to stay. MMODL / IJN: [id number] /
== END 2022-04-16 15:11 | disposition left against medical advice (07) ==
LOC: EC 05:05 → 3SCARD 09:29 → INTOOBSV 09:29 → 3SCARD 09:45 → UNDODISIN 04-16 15:11
PROVIDERS: ADMIT Internal Medicine; ATTEND Internal Medicine
DX: I21.4 Non-ST elevation (NSTEMI) myocardial infarction (principal); R41.82 Altered mental status, unspecified; I10 Essential (primary) hypertension; I44.0 Atrioventricular block, first degree; I44.7 Left bundle-branch block, unspecified; I67.89 Other cerebrovascular disease; H91.90 Unspecified hearing loss, unspecified ear; Z60.2 Problems related to living alone; G89.29 Other chronic pain; M54.9 Dorsalgia, unspecified; Z53.29 Procedure and treatment not carried out because of patient's decision for other reasons; Z79.82 Long term (current) use of aspirin; Z79.1 Long term (current) use of non-steroidal anti-inflammatories (NSAID); Z79.899 Other long term (current) drug therapy; Z91.013 Allergy to seafood; Z86.718 Personal history of other venous thrombosis and embolism; Z87.19 Personal history of other diseases of the digestive system; Z96.659 Presence of unspecified artificial knee joint; Z96.641 Presence of right artificial hip joint; Z98.890 Other specified postprocedural states; Z87.891 Personal history of nicotine dependence
CPT/HCPCS: 82075; 96374; 96375; 99285; 36415; 93005; 97162; 97166; 80053; 83605; 84484; 85025; 85610; 85730; 81001; 80306; 70450; G0378 ×2; J2060; J1644 ×2; 99283

== ENCOUNTER 2024-04-16 18:17 | Inpatient (IN) | payer MEDICARE, OTHER ==
[~2024-04-16 18:17] MED LIST changes: -ACETAMINOPHEN TAB 500 MG TAB PO ONE; +ASPIRIN 300 MG SUPP RECTAL ONE; -HYDROmorphone 0.5 MG/0.5 ML SYRINGE IVP PRN; -LIDOCAINE 1% 20 ML VIAL (10MG/ML) FOR IV START INTRADERMA PRN; -MELOXICAM 7.5 MG TAB PO ONE; -MIDAZOLAM 2 MG/2 ML VIAL IV PRN; -ROPIVACAINE 246.25 MG, EPINEPHrine 0.5 MG, KETOROLAC 30 MG, cloNIDine HCL/PF 80 MCG, WA... MISCELLANE ONE; -TRANEXAMIC ACID 1,000 MG in SODIUM CHLORIDE 0.9% 100 ML IVPB ONE
[2024-04-16] MEDS ORDERED: METOPROLOL TARTRATE 25 MG TAB ONE (23:42)
[2024-04-16] MEDS ORDERED: SODIUM CHLORIDE 0.9% 1,000 ML BAG ONE (23:59)
[2024-04-17] MEDS ORDERED: ASPIRIN 81 MG ONE (08:13)
[2024-04-18] MEDS ORDERED: ENOXAPARIN 40 MG/0.4 ML SYRINGE SQ ONE (08:34)
[2024-04-19] MEDS: SODIUM CHLORIDE 0.9% 1,000 ML IV SCH (04:40)
[2024-04-19 06:48] LABS: Basophils % (A) 0 %; Eosinophils # (A) 0.1 k/uL (0-0.7); Eosinophils % (A) 1 %; HCT 29.1 % (39.0-53.0); HGB 9.1 gm/dL (13.0-17.5); Hypochromasia Marked; Lymphocytes # (A) 0.9 k/uL (1.0-4.8); Lymphocytes % (A) 10 %; MCH 30.1 pg (25.0-35.0); MCHC 31.2 g/dL (31.0-37.0); MCV 96.6 fL (80.0-100.0); Mean Platelet Volume 7.7; Monocytes # (A) 0.5 k/uL (0-1.0); Monocytes % (A) 6 %; Neutrophils # (A) 7.3 k/uL (1.3-7.7); Neutrophils % (A) 83 %; Platelet Count 317 k/uL (150-450); RBC 3.01 m/uL (4.30-5.90); RDW 14.4 % (11.5-15.5); WBC 8.9 k/uL (3.8-10.6)
[2024-04-19 07:03] LABS: ALT 13 U/L (4-49); AST 27 U/L (17-59); African American GFR (CKD) 83 (>60 ml/min/1.73 sqM); Albumin 3.3 g/dL (3.5-5.0); Alkaline Phosphatase 73 U/L (38-126); Anion Gap 8 mmol/L; Blood Urea Nitrogen 31 mg/dL (9-20); Calcium 8.8 mg/dL (8.4-10.2); Carbon Dioxide 24 mmol/L (22-30); Chloride 115 mmol/L (98-107); Glucose 94 mg/dL (74-99); Non-African American GFR(CKD) 72 (>60 ml/min/1.73 sqM); Potassium 3.5 mmol/L (3.5-5.1); Sodium 147 mmol/L (137-145); Total Bilirubin 0.9 mg/dL (0.2-1.3); Total Protein 6.3 g/dL (6.3-8.2)
[2024-04-19] MEDS: ENOXAPARIN 40 MG/0.4 ML SYRINGE SQ SCH (08:18)
[2024-04-19] MEDS: ASPIRIN 300 MG SUPP RECTAL SCH (08:18)
[2024-04-19] MEDS: METOPROLOL TARTRATE 25 MG TAB PO SCH (08:18)
[2024-04-19] MEDS ORDERED: ASPIRIN 81 MG PO SCH (09:00)
--- NOTE | 2024-04-19 11:13 | P.PN ---
Subjective Progress Note Date: 04/19/24 HPI : Presented to the hospital because of concerns of slurred speech and concerns of a possible CVA. He also had concerns of aspiration pneumonia. On admission he was noticed to have new onset atrial fibrillation for which cardiology was consulted. SUBJECTIVE: Patient is having difficulty swallowing and there is concern of possible dysphagia and aspiration pneumonia. Not able to get his p.o. cardiac medications. Hemoglobin is 9.1 and stable, creatinine 0.9 and is stable. Sodium is 147 telemetry shows atrial fibrillation with controlled rate PHYSICAL EXAMINATION Vital signs reviewed. Head: Normocephalic. Eyes: Sclerae nonicteric. Neck: Brisk carotid upstroke, no jugular venous distention. Lungs: Clear to auscultation. Heart: Irregularly irregular with mild systolic murmur audible Abdomen: Soft nontender, bowel sounds present, Extremities: No edema, Neuro: Detailed neuro exam was not performed. ASSESSMENT Right parietal lobe CVA Newly Diagnosed atrial fibrillation, currently rate controlled atrial fibrillation Newly diagnosed cardiomyopathy with a EF of 35 to 40%, could be related to acute CVA and A-fib tachycardia induced. Possibility of ischemic cardiomyopathy cannot be ruled out. Currently appears euvolemic Essential hypertension Dysphagia and concerns of aspiration pneumonia Hypernatremia PLAN Continue aspirin, statin, metoprolol 25 mg twice daily Patient has not been able to swallow his medications because of dysphagia which is most likely because of his CVA. He have not been able to add further GDMT for his cardiomyopathy. Await neurology recommendations on when to start anticoagulation. Patient's family is evaluating the goals of the care Primary team to manage hypernatremia, consider starting IV fluids as patient's oral intake is low Chon Olmedo MD, FACC, RPVI Thank you for allowing [facility] to participate in this patient's care. Please contact us in case of any followup questions. Objective - Vital Signs Vital signs: Vital Signs Temp 98.4 F 04/19/24 08:01 Pulse 106 H 04/19/24 08:01 Resp 20 04/19/24 08:01 BP 149/61 04/19/24 08:01 Pulse Ox 94 L 04/19/24 08:01 FiO2 Intake & Output 04/18/24 04/19/24 04/19/24 18:59 06:59 18:59 Weight 81.6 kg - Labs CBC & Chem 7: 04/19/24 05:39 04/19/24 05:39 Labs: Abnormal Lab Results - Last 24 Hours (Table) 04/19/24 04/19/24 Range/Units 05:39 05:39 RBC 3.01 L (4.30-5.90) m/uL Hgb 9.1 L (13.0-17.5) gm/dL Hct 29.1 L (39.0-53.0) % Lymphocytes # 0.9 L (1.0-4.8) k/uL Sodium 147 H (137-145) mmol/L Chloride 115 H (98-107) mmol/L BUN 31 H (9-20) mg/dL Albumin 3.3 L (3.5-5.0) g/dL
--- NOTE | 2024-04-19 12:38 | P.PN ---
Subjective Progress Note Date: 04/19/24 Principal diagnosis: stroke Patient showing signs of improvement in his cognition, currently able to answer questions coherently. However he did not know where he was or the year. Continues to complain from bilateral legs pains. He is NPO as he failed the swallow evaluation upon admission. No overnight events. Objective - Vital Signs Vital signs: Vital Signs Temp 98.4 F 04/19/24 08:01 Pulse 106 H 04/19/24 08:01 Resp 20 04/19/24 08:01 BP 149/61 04/19/24 08:01 Pulse Ox 94 L 04/19/24 08:01 FiO2 Intake & Output 04/18/24 04/19/24 04/19/24 18:59 06:59 18:59 Weight 81.6 kg - Exam Constitutional: No acute distress, conversant, pleasant Eyes: Anicteric sclerae, moist conjunctiva, no lid-lag, Pupils equal round reactive to light ENMT: NC/AT, Oropharynx clear, no erythema, exudates. Dry mucous membranes Neck: Supple, FROM, no masses, or JVD, No carotid bruits, No thyromegaly Lungs: Clear to auscultation, Normal respiratory effort, no accessory muscle use Cardiovascular: Irregularly irregular, slightly tachycardic, No murmurs, gallops, or rubs. No peripheral edema Abdominal: Soft, Nontender, no guarding, rebound or rigidity, No hepatomegaly, No splenomegaly, no palpable mass No abdominal wall hernia noted Skin: Normal temperature, tone, texture, turgor, No rash, lesions Extremities: No digital cyanosis, No clubbing Neuro alert and oriented to self, strength is 5 out of 5 in the right upper extremity, 4+ out of 5 in the left upper extremity. 3 out of 5 in bilateral lower extremities. Movement in the right lower extremity is more than the left lower extremity. There is left facial weakness. - Labs CBC & Chem 7: 04/19/24 05:39 04/19/24 05:39 Labs: Abnormal Lab Results - Last 24 Hours (Table) 04/19/24 04/19/24 Range/Units 05:39 05:39 RBC 3.01 L (4.30-5.90) m/uL Hgb 9.1 L (13.0-17.5) gm/dL Hct 29.1 L (39.0-53.0) % Lymphocytes # 0.9 L (1.0-4.8) k/uL Sodium 147 H (137-145) mmol/L Chloride 115 H (98-107) mmol/L BUN 31 H (9-20) mg/dL Albumin 3.3 L (3.5-5.0) g/dL Assessment and Plan Plan: Acute right MCA CVA Case was discussed with neurology Patient is on full dose aspirin, rectally Is currently n.p.o. but as he is more alert and communicative today I discussed with the nurse repeating the swallow evaluation Will repeat head CT scan to check for hemorrhagic conversion, if no bleeding present might consider anticoagulation per neurology PT and OT Dysphagia and concerns of aspiration pneumonia Likely due to above Will repeat swallow eval Hypernatremia likely sec to dehydration as he is NPO IV fluids switched to D5 in water at 70 cc/h. Newly Diagnosed atrial fibrillation, currently rate controlled Newly diagnosed cardiomyopathy with a EF of 35 to 40%, could be related to acute CVA and A-fib tachycardia induced. Possibility of ischemic cardiomyopathy cannot be ruled out. Per cardiology service, will need statin, metoprolol 25 mg twice daily once able to take by mouth Essential hypertension Monitor bp Case was discussed with his guardian upon admission, will consider comfort care/hospice based on his clinical performance the next day or 2.
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
[2024-04-19] MEDS: DEXTROSE 5% IN WATER 1,000 ML IV SCH (13:52)
[2024-04-19] MEDS: ACETAMINOPHEN SUPPOSITORY 650 MG SUPP RECTAL PRN (13:53)
--- NOTE | 2024-04-19 14:06 | CT ---
EXAMINATION TYPE: CT brain wo con DATE OF EXAM: 04/19/2024 COMPARISON: 04/16/2024 and 04/15/2022 HISTORY: 83-year-old male pain, rule out bleeding TECHNIQUE: Examination was done in axial plane without intravenous contrast. Coronal and sagittal r econstructions performed. CT DLP: 1211.4 mGycm Automated exposure control for dose reduction was used. FINDINGS: Moderate periventricular white matter hypodensities. Mild ventriculomegaly is unchanged. Atherosclerotic calcifications within the carotid siphons. There is greater degree of cortical and subcortical hypodensity with sulcal effacement is also in the right occipital lobe. Suggest hypodensity extends into the posterior right parietal lobe is an poste rior right temporal lobe. No evidence for renal hemorrhage. No midline shift or effacement of the uterus. Rightward nasal septal deviation. Paranasal sinuses and mastoid air cells are pneumatized. The globes are intact. IMPRESSION: Maturing acute to subacute right MICROBIOLOGY ANALYST territory infarct. No midline shift or herniation. No hemorrhagi c transformation seen.
[2024-04-19 16:47] LABS: Glucose,Whole Blood 115 mg/dL (70-110)
[2024-04-19 17:15] LABS: African American GFR (CKD) 87 (>60 ml/min/1.73 sqM); Anion Gap 9 mmol/L; Blood Urea Nitrogen 34 mg/dL (9-20); Calcium 8.7 mg/dL (8.4-10.2); Carbon Dioxide 24 mmol/L (22-30); Chloride 110 mmol/L (98-107); Glucose 106 mg/dL (74-99); Magnesium 1.9 mg/dL (1.6-2.3); Non-African American GFR(CKD) 75 (>60 ml/min/1.73 sqM); Potassium 3.1 mmol/L (3.5-5.1); Sodium 143 mmol/L (137-145)
[2024-04-19] MEDS: POTASSIUM CHLORIDE 10 MEQ in WATER FOR INJECTION 1 100ML.BAG IVPB SCH (18:11)
[2024-04-19] MEDS: ATORVASTATIN 80 MG TAB PO SCH (19:28)
[2024-04-19 20:32] LABS: Glucose,Whole Blood 103 mg/dL (70-110)
[2024-04-20 06:15] LABS: Glucose,Whole Blood 136 mg/dL (70-110)
[2024-04-20 08:16] LABS: Basophils % (A) 0 %; Eosinophils # (A) 0.1 k/uL (0-0.7); Eosinophils % (A) 1 %; HCT 28.6 % (39.0-53.0); HGB 9.1 gm/dL (13.0-17.5); Hypochromasia Moderate; Lymphocytes # (A) 0.8 k/uL (1.0-4.8); Lymphocytes % (A) 10 %; MCH 31.1 pg (25.0-35.0); MCHC 31.9 g/dL (31.0-37.0); MCV 97.5 fL (80.0-100.0); Mean Platelet Volume 8.4; Monocytes # (A) 0.4 k/uL (0-1.0); Monocytes % (A) 5 %; Neutrophils # (A) 6.9 k/uL (1.3-7.7); Neutrophils % (A) 83 %; Platelet Count 302 k/uL (150-450); RBC 2.93 m/uL (4.30-5.90); RDW 14.6 % (11.5-15.5); WBC 8.2 k/uL (3.8-10.6)
[2024-04-20 08:52] LABS: ALT 13 U/L (4-49); AST 28 U/L (17-59); African American GFR (CKD) >90 (>60 ml/min/1.73 sqM); Albumin 3.1 g/dL (3.5-5.0); Alkaline Phosphatase 65 U/L (38-126); Anion Gap 7 mmol/L; Blood Urea Nitrogen 29 mg/dL (9-20); Calcium 8.6 mg/dL (8.4-10.2); Carbon Dioxide 24 mmol/L (22-30); Chloride 113 mmol/L (98-107); Glucose 121 mg/dL (74-99); Magnesium 1.8 mg/dL (1.6-2.3); Non-African American GFR(CKD) 80 (>60 ml/min/1.73 sqM); Potassium 3.2 mmol/L (3.5-5.1); Sodium 144 mmol/L (137-145); Total Bilirubin 1.1 mg/dL (0.2-1.3); Total Protein 6.3 g/dL (6.3-8.2)
[2024-04-20] MEDS: POTASSIUM CHLORIDE 20 MEQ in WATER FOR INJECTION 1 100ML.BAG IVPB STA (09:14)
[2024-04-20 12:28] LABS: Glucose,Whole Blood 139 mg/dL (70-110)
--- NOTE | 2024-04-20 12:53 | FL ---
Exam Date: 04/20/2024 12:37 PM. Modified barium swallow for dysphagia. Consistencies administered: Various consistency of barium. Fluoro time: 1 min 29 sec fluoro time No images were sent to PACS. Please see speech pathology report. DAP: None reported mGym2 Gycm2 MBS. Pt given 1 oz thin, honey, nectar, pudding. 1 min 29 sec fluoro time. RADAMES Carlisle, EM.
--- NOTE | 2024-04-20 13:50 | P.PN ---
Subjective Progress Note Date: 04/20/24 HPI : Presented to the hospital because of concerns of slurred speech and concerns of a possible CVA. He also had concerns of aspiration pneumonia. On admission he was noticed to have new onset atrial fibrillation for which cardiology was consulted. SUBJECTIVE: Patient is having difficulty swallowing and there is concern of possible dysphagia and aspiration pneumonia. Not able to get his p.o. cardiac medications. Hemoglobin is 9.1 and stable, creatinine 0.9 and is stable. Sodium is 147 telemetry shows atrial fibrillation with controlled rate 04/20 Patient is seen today in follow-up. He has not been started on anticoagulation for atrial fibrillation as last CT showed evolving CVA. Patient has failed swallow evaluation and is being evaluated by speech therapy. Blood pressure 122/68, heart rate 100, pulse ox 94% on room air. Repeat blood work reveals hemoglobin 9.1. Potassium 3.2, creatinine 0.83. PHYSICAL EXAMINATION Vital signs reviewed. Head: Normocephalic. Eyes: Sclerae nonicteric. Neck: Brisk carotid upstroke, no jugular venous distention. Lungs: Clear to auscultation. Heart: Irregularly irregular with mild systolic murmur audible Abdomen: Soft nontender, bowel sounds present, Extremities: No edema, Neuro: Awake and alert. ASSESSMENT Right parietal lobe CVA Newly Diagnosed atrial fibrillation, currently rate controlled atrial fibrillation, paroxysmal Newly diagnosed cardiomyopathy with a EF of 35 to 40%, could be related to acute CVA and A-fib tachycardia induced. Possibility of ischemic cardiomyopathy cannot be ruled out. Currently appears euvolemic Essential hypertension Dysphagia and concerns of aspiration pneumonia Hypernatremia PLAN Continue aspirin rectally and statin, metoprolol 25 mg twice daily once patient is able to take oral medications Patient has not been able to swallow his medications because of dysphagia which is most likely because of his CVA. He have not been able to add further GDMT for his cardiomyopathy. Await neurology recommendations on when to start anticoagulation. Patient's family is evaluating the goals of the care Primary team to manage hypernatremia, consider starting IV fluids as patient's oral intake is low Nurse practitioner note has been reviewed, I agree with documented findings and plan of care. Patient was seen and examined. Objective - Vital Signs Vital signs: Vital Signs Temp 98.1 F 04/20/24 08:00 Pulse 109 H 04/20/24 08:00 Resp 18 04/20/24 08:00 BP 134/64 04/20/24 08:00 Pulse Ox 95 04/20/24 08:00 FiO2 Intake & Output 04/19/24 04/20/24 04/20/24 18:59 06:59 18:59 Intake Total 0 Output Total 400 650 300 Balance -400 -650 -300 Weight 96 kg Intake: Oral 0 Output: Urine 400 650 300 Other: Voiding Method External Catheter External Catheter External Catheter - Labs CBC & Chem 7: 04/20/24 07:43 04/20/24 07:43 Labs: Abnormal Lab Results - Last 24 Hours (Table) 04/19/24 04/19/24 04/20/24 Range/Units 16:40 16:45 06:13 RBC (4.30-5.90) m/uL Hgb (13.0-17.5) gm/dL Hct (39.0-53.0) % Lymphocytes # (1.0-4.8) k/uL Potassium 3.1 L (3.5-5.1) mmol/L Chloride 110 H (98-107) mmol/L BUN 34 H (9-20) mg/dL Glucose 106 H (74-99) mg/dL POC Glucose (mg/dL) 115 H 136 H (70-110) mg/dL Albumin (3.5-5.0) g/dL 04/20/24 04/20/24 Range/Units 07:43 07:43 RBC 2.93 L (4.30-5.90) m/uL Hgb 9.1 L (13.0-17.5) gm/dL Hct 28.6 L (39.0-53.0) % Lymphocytes # 0.8 L (1.0-4.8) k/uL Potassium 3.2 L (3.5-5.1) mmol/L Chloride 113 H (98-107) mmol/L BUN 29 H (9-20) mg/dL Glucose 121 H (74-99) mg/dL POC Glucose (mg/dL) (70-110) mg/dL Albumin 3.1 L (3.5-5.0) g/dL
--- NOTE | 2024-04-20 14:12 | P.PN ---
Subjective Progress Note Date: 04/20/24 Principal diagnosis: stroke Patient clinically improving, his cognition is better today. He is able to answer questions coherently. Complaining from bilateral legs pain but otherwise denied any other complaint. No overnight events. Objective - Vital Signs Vital signs: Vital Signs Temp 98.2 F 04/20/24 11:44 Pulse 100 04/20/24 11:44 Resp 18 04/20/24 11:44 BP 122/68 04/20/24 11:44 Pulse Ox 94 L 04/20/24 11:44 FiO2 Intake & Output 04/19/24 04/20/24 04/20/24 18:59 06:59 18:59 Intake Total 0 Output Total 400 650 450 Balance -400 -650 -450 Weight 96 kg Intake: Oral 0 Output: Urine 400 650 450 Other: Voiding Method External Catheter External Catheter External Catheter # Bowel Movements 1 - Exam Constitutional: No acute distress, conversant, pleasant Eyes: Anicteric sclerae, moist conjunctiva, no lid-lag, Pupils equal round reactive to light ENMT: NC/AT, Oropharynx clear, no erythema, exudates. Dry mucous membranes Neck: Supple, FROM, no masses, or JVD, No carotid bruits, No thyromegaly Lungs: Clear to auscultation, Normal respiratory effort, no accessory muscle use Cardiovascular: Irregularly irregular, slightly tachycardic, No murmurs, gallops, or rubs. No peripheral edema Abdominal: Soft, Nontender, no guarding, rebound or rigidity, No hepatomegaly, No splenomegaly, no palpable mass No abdominal wall hernia noted Skin: Normal temperature, tone, texture, turgor, No rash, lesions Extremities: No digital cyanosis, No clubbing Neuro alert and oriented to self, strength is 5 out of 5 in the right upper extremity, 4+ out of 5 in the left upper extremity. 3 out of 5 in bilateral lower extremities. Movement in the right lower extremity is more than the left lower extremity. There is left facial weakness. - Labs CBC & Chem 7: 04/20/24 07:43 04/20/24 07:43 Labs: Abnormal Lab Results - Last 24 Hours (Table) 04/19/24 04/19/24 04/20/24 Range/Units 16:40 16:45 06:13 RBC (4.30-5.90) m/uL Hgb (13.0-17.5) gm/dL Hct (39.0-53.0) % Lymphocytes # (1.0-4.8) k/uL Potassium 3.1 L (3.5-5.1) mmol/L Chloride 110 H (98-107) mmol/L BUN 34 H (9-20) mg/dL Glucose 106 H (74-99) mg/dL POC Glucose (mg/dL) 115 H 136 H (70-110) mg/dL Albumin (3.5-5.0) g/dL 04/20/24 04/20/24 04/20/24 Range/Units 07:43 07:43 12:27 RBC 2.93 L (4.30-5.90) m/uL Hgb 9.1 L (13.0-17.5) gm/dL Hct 28.6 L (39.0-53.0) % Lymphocytes # 0.8 L (1.0-4.8) k/uL Potassium 3.2 L (3.5-5.1) mmol/L Chloride 113 H (98-107) mmol/L BUN 29 H (9-20) mg/dL Glucose 121 H (74-99) mg/dL POC Glucose (mg/dL) 139 H (70-110) mg/dL Albumin 3.1 L (3.5-5.0) g/dL Assessment and Plan Plan: Acute right MCA CVA Dysphagia on admission Patient is on full dose aspirin, rectally Is currently n.p.o. due to dysphagia on admission Repeat head CT scan negative for hemorrhagic conversion, will need to repeat on 04/24 according to neurology to confirm and if negative for bleeding can start AC. PT and OT Dysphagia and concerns of aspiration pneumonia Likely due to above Seen by speech again today, barium swallow ordered. Hypernatremia likely sec to dehydration as he is NPO resolved Continue IV fluids until able to swallow by mouth. Newly Diagnosed atrial fibrillation, currently rate controlled Newly diagnosed cardiomyopathy with a EF of 35 to 40%, could be related to acute CVA and A-fib tachycardia induced. Possibility of ischemic cardiomyopathy cannot be ruled out. Per cardiology service, will need statin, metoprolol 25 mg twice daily once able to take by mouth Essential hypertension Monitor bp Case was discussed with his guardian upon admission, will consider comfort care/hospice if he doesn't do well.
[2024-04-20 16:51] LABS: Glucose,Whole Blood 121 mg/dL (70-110)
[2024-04-20 20:19] LABS: Glucose,Whole Blood 142 mg/dL (70-110)
[2024-04-21 06:03] LABS: Glucose,Whole Blood 104 mg/dL (70-110)
[2024-04-21] MEDS: ASPIRIN 81 MG PO SCH (08:08)
[2024-04-21 09:39] LABS: Basophils % (A) 1 %; Eosinophils # (A) 0.2 k/uL (0-0.7); Eosinophils % (A) 3 %; HCT 32.1 % (39.0-53.0); Hypochromasia Marked; Lymphocytes # (A) 0.9 k/uL (1.0-4.8); Lymphocytes % (A) 14 %; MCH 30.4 pg (25.0-35.0); MCHC 31.1 g/dL (31.0-37.0); Mean Platelet Volume 7.9; Monocytes # (A) 0.3 k/uL (0-1.0); Monocytes % (A) 5 %; Neutrophils # (A) 4.9 k/uL (1.3-7.7); Neutrophils % (A) 77 %; Platelet Count 314 k/uL (150-450); RBC 3.28 m/uL (4.30-5.90); RDW 14.2 % (11.5-15.5); WBC 6.3 k/uL (3.8-10.6)
[2024-04-21 10:09] LABS: African American GFR (CKD) >90 (>60 ml/min/1.73 sqM); Anion Gap 7 mmol/L; Blood Urea Nitrogen 20 mg/dL (9-20); Calcium 8.2 mg/dL (8.4-10.2); Carbon Dioxide 26 mmol/L (22-30); Chloride 105 mmol/L (98-107); Glucose 132 mg/dL (74-99); Magnesium 1.7 mg/dL (1.6-2.3); Non-African American GFR(CKD) 80 (>60 ml/min/1.73 sqM); Potassium 3.4 mmol/L (3.5-5.1); Sodium 138 mmol/L (137-145)
[2024-04-21 11:53] LABS: Glucose,Whole Blood 120 mg/dL (70-110)
--- NOTE | 2024-04-21 12:43 | P.PN ---
Subjective Progress Note Date: 04/21/24 Patient is resting comfortably in the bed. Still remains confused from the recent CVA. He is following has improved. Patient has atrial fibrillation but so far we have not started anticoagulation and we are waiting for neurologist permission to do so. He has cardiomyopathy with an ejection fraction of 35%. On exam patient is comfortable at rest vital signs are stable chest exam reveals diminished air entry at the bases heart exam reveals first and second heart sounds no gallop exam extremities did not reveal any edema Assessment and plan: CVA probably due to new onset atrial fibrillation Atrial fibrillation Will anticoagulate the patient when okayed by neurology Objective - Vital Signs Vital signs: Vital Signs Temp 97.9 F 04/21/24 08:00 Pulse 76 04/21/24 11:16 Resp 16 04/21/24 11:16 BP 130/78 04/21/24 11:16 Pulse Ox 96 04/21/24 11:16 FiO2 Intake & Output 04/20/24 04/21/24 04/21/24 18:59 06:59 18:59 Intake Total 120 240 Output Total 600 500 250 Balance -480 -500 -10 Weight 97.5 kg Intake: Oral 120 240 Output: Urine 600 500 250 Other: Voiding Method External Catheter External Catheter External Catheter # Bowel Movements 1 - Labs CBC & Chem 7: 04/21/24 08:49 04/21/24 08:49 Labs: Abnormal Lab Results - Last 24 Hours (Table) 04/20/24 04/20/24 04/21/24 Range/Units 16:48 20:17 08:49 RBC 3.28 L (4.30-5.90) m/uL Hgb 10.0 L (13.0-17.5) gm/dL Hct 32.1 L (39.0-53.0) % Lymphocytes # 0.9 L (1.0-4.8) k/uL Potassium (3.5-5.1) mmol/L Glucose (74-99) mg/dL POC Glucose (mg/dL) 121 H 142 H (70-110) mg/dL Calcium (8.4-10.2) mg/dL 04/21/24 04/21/24 Range/Units 08:49 11:52 RBC (4.30-5.90) m/uL Hgb (13.0-17.5) gm/dL Hct (39.0-53.0) % Lymphocytes # (1.0-4.8) k/uL Potassium 3.4 L (3.5-5.1) mmol/L Glucose 132 H (74-99) mg/dL POC Glucose (mg/dL) 120 H (70-110) mg/dL Calcium 8.2 L (8.4-10.2) mg/dL
--- NOTE | 2024-04-21 12:57 | P.PN ---
Subjective Progress Note Date: 04/21/24 Principal diagnosis: CVA, carotid stenosis patient seen and examined. No changes overnight. Currently being seen with speech therapy. Objective - Vital Signs Vital signs: Vital Signs Temp 97.9 F 04/21/24 08:00 Pulse 76 04/21/24 11:16 Resp 16 04/21/24 11:16 BP 130/78 04/21/24 11:16 Pulse Ox 96 04/21/24 11:16 FiO2 Intake & Output 04/20/24 04/21/24 04/21/24 18:59 06:59 18:59 Intake Total 120 240 Output Total 600 500 250 Balance -480 -500 -10 Weight 97.5 kg Intake: Oral 120 240 Output: Urine 600 500 250 Other: Voiding Method External Catheter External Catheter External Catheter # Bowel Movements 1 - Constitutional General appearance: Present: average body habitus, cooperative - EENT Eyes: Present: PERRLA - Respiratory Respiratory: bilateral: CTA - Cardiovascular Rhythm: regularly irregular - Labs CBC & Chem 7: 04/21/24 08:49 04/21/24 08:49 Labs: Abnormal Lab Results - Last 24 Hours (Table) 04/20/24 04/20/24 04/21/24 Range/Units 16:48 20:17 08:49 RBC 3.28 L (4.30-5.90) m/uL Hgb 10.0 L (13.0-17.5) gm/dL Hct 32.1 L (39.0-53.0) % Lymphocytes # 0.9 L (1.0-4.8) k/uL Potassium (3.5-5.1) mmol/L Glucose (74-99) mg/dL POC Glucose (mg/dL) 121 H 142 H (70-110) mg/dL Calcium (8.4-10.2) mg/dL 04/21/24 04/21/24 Range/Units 08:49 11:52 RBC (4.30-5.90) m/uL Hgb (13.0-17.5) gm/dL Hct (39.0-53.0) % Lymphocytes # (1.0-4.8) k/uL Potassium 3.4 L (3.5-5.1) mmol/L Glucose 132 H (74-99) mg/dL POC Glucose (mg/dL) 120 H (70-110) mg/dL Calcium 8.2 L (8.4-10.2) mg/dL Assessment and Plan Assessment: Large acute ischemic stroke Atrial fibrillation Right ICA stenosis CAD Plan: Due to large stroke and high risk for hemorrhagic conversion recommendation is to wait a couple of months for intervention. Continue management per neurology Continue speech therapy, PT/OT. Will need rehab. Will follow as outpatient.
--- NOTE | 2024-04-21 14:46 | P.PN ---
Subjective Progress Note Date: 04/21/24 83 year old M with PMH of HTN, CAD presented to the ED for slurred speech. Noted to have new onset A-Fib. Diagnosed with large right parietal occipital CVA. 04/21 Patient was seen and examined. Confused. Significantly weak. Discussed with RN. CBC, BMP, Mag significant for RBC 3.28, Hg 10, Hct 32.1, K 3.4, glu 132, Ca 8.2. General: non toxic, no distress, appears at stated age Derm: warm, dry Head: atraumatic, normocephalic, symmetric Eyes: EOMI, no lid lag, anicteric sclera Mouth: no lip lesion, mucus membranes moist Cardiovascular: S1S2 irreg, no murmur Lungs: CTA bilateral, no rhonchi, no rales , no accessory muscle use Ext: no gross muscle atrophy, no edema, no contractures Neuro: Left facial droop. Strength 3/5 bilateral LE, 4/5 GEOVANNA and 5/5 RUE. Psych: Alert, oriented, x 1 Based on my assessment of this patient, this patient meets a high complexity level of care. Large right parietal occipital CVA: Repeat CT on 04/24 prior to starting Eliquis. ASA 81 mg PO QD. Lipitor 80 mg PO QHS. Telemetry monitoring. Fall precautions. Advanced neurochecks. PT OT ST on board. ST recommending NDD3 diet. Neurology on board. Right ICA stenosis: Vascular recommends outpatient follow up for intervention. New onset A-Fib: Metoprolol 25 mg PO BID. AC per Neurology recommendations. CODE STATUS: NO CODE DVT Prophylaxis: Lovenox SQ GI Prophylaxis: Designated medical POA if patient is not able to make medical decisions for themselves: I have reviewed the following strategic sourcing consultant notes: Vascular, Cardiology I have reviewed the results of the following tests: CBC, BMP, Mag. I have ordered the following tests: I have discussed the care of this patient with the following independent historian: I have independently interpreted the following test below: I have discussed the management of this patient with the following physician: Dr. Fernandez. Objective - Vital Signs Vital signs: Vital Signs Temp 97.9 F 04/21/24 08:00 Pulse 76 04/21/24 11:16 Resp 16 04/21/24 11:16 BP 130/78 04/21/24 11:16 Pulse Ox 96 04/21/24 11:16 FiO2 Intake & Output 04/20/24 04/21/24 04/21/24 18:59 06:59 18:59 Intake Total 120 240 Output Total 600 500 250 Balance -480 -500 -10 Weight 97.5 kg Intake: Oral 120 240 Output: Urine 600 500 250 Other: Voiding Method External Catheter External Catheter External Catheter # Bowel Movements 1 - Labs CBC & Chem 7: 04/21/24 08:49 04/21/24 08:49 Labs: Abnormal Lab Results - Last 24 Hours (Table) 04/20/24 04/20/24 04/21/24 Range/Units 16:48 20:17 08:49 RBC 3.28 L (4.30-5.90) m/uL Hgb 10.0 L (13.0-17.5) gm/dL Hct 32.1 L (39.0-53.0) % Lymphocytes # 0.9 L (1.0-4.8) k/uL Potassium (3.5-5.1) mmol/L Glucose (74-99) mg/dL POC Glucose (mg/dL) 121 H 142 H (70-110) mg/dL Calcium (8.4-10.2) mg/dL 04/21/24 04/21/24 Range/Units 08:49 11:52 RBC (4.30-5.90) m/uL Hgb (13.0-17.5) gm/dL Hct (39.0-53.0) % Lymphocytes # (1.0-4.8) k/uL Potassium 3.4 L (3.5-5.1) mmol/L Glucose 132 H (74-99) mg/dL POC Glucose (mg/dL) 120 H (70-110) mg/dL Calcium 8.2 L (8.4-10.2) mg/dL
[2024-04-21] MEDS: MAGNESIUM SULFATE-D5W PMX 1 GM in DEXTROSE/WATER 1 100ML.BAG IVPB SCH (15:17)
[2024-04-21] MEDS: POTASSIUM CHLORIDE 10 MEQ in WATER FOR INJECTION 1 100ML.BAG IVPB SCH (17:18)
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
[2024-04-22] MEDS: PANTOPRAZOLE 40 MG TABLET PO SCH (09:26)
--- NOTE | 2024-04-22 09:51 | P.PN ---
Subjective Progress Note Date: 04/22/24 83 year old M with PMH of HTN, CAD presented to the ED for slurred speech on 04/16. Noted to have new onset A-Fib. Diagnosed with large right parietal occipital CVA. 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 04/21 Patient was seen and examined. Confused. Significantly weak. Discussed with RN. CBC, BMP, Mag significant for RBC 3.28, Hg 10, Hct 32.1, K 3.4, glu 132, Ca 8.2. 04/22 Patient was seen and examined. Confused. Unchanged from yesterday. Plans for CT head on 04/24. General: non toxic, no distress, appears at stated age Derm: warm, dry Head: atraumatic, normocephalic, symmetric Eyes: EOMI, no lid lag, anicteric sclera Mouth: no lip lesion, mucus membranes moist Cardiovascular: S1S2 irreg, no murmur Lungs: CTA bilateral, no rhonchi, no rales , no accessory muscle use Ext: no gross muscle atrophy, no edema, no contractures Neuro: Left facial droop. Strength 3/5 bilateral LE, 4/5 GEOVANNA and 5/5 RUE. Psych: Alert, oriented, x 1 Based on my assessment of this patient, this patient meets a high complexity level of care. Large right parietal occipital CVA: Repeat CT on 04/24 prior to starting Eliquis. ASA 81 mg PO QD. Lipitor 80 mg PO QHS. Telemetry monitoring. Fall precautions. Advanced neurochecks. PT/OT/ST on board. ST recommending NDD3 diet. Neurology on board. Right ICA stenosis: Vascular recommends outpatient follow up for intervention. New onset A-Fib: Metoprolol 25 mg PO BID. AC per Neurology recommendations. Hypokalemia: KCl 20 meq IV x 1 04/21. Hypomagnesemia: Mag sulfate 2g IV x 1 04/21. Normocytic anemia: Monitor. Stable. No signs of acute bleeding. Hypertension: Metoprolol as above. Monitor vitals and adjust medications if necessary. CODE STATUS: NO CODE DVT Prophylaxis: Lovenox SQ GI Prophylaxis: Protonix PO Designated medical POA if patient is not able to make medical decisions for themselves: I have reviewed the following search consultant notes: Vascular, Cardiology, Neurology. I have reviewed the results of the following tests: I have ordered the following tests: CT brain on 04/24. BMP and Mag ordered for 04/23. I have discussed the care of this patient with the following independent histo eric: I have independently interpreted the following test below: I have discussed the management of this patient with the following physician: Objective - Vital Signs Vital signs: Vital Signs Temp 97.7 F 04/22/24 04:00 Pulse 68 04/22/24 04:00 Resp 16 04/22/24 04:00 BP 126/59 04/22/24 04:00 Pulse Ox 96 04/22/24 04:00 FiO2 Intake & Output 04/21/24 04/21/24 04/22/24 06:59 18:59 06:59 Intake Total 240 Output Total 500 400 400 Balance -500 -160 -400 Weight 97.5 kg 97.5 kg Intake: Oral 240 Output: Urine 500 400 400 Other: Voiding Method External Catheter External Catheter External Catheter # Voids 1 - Labs CBC & Chem 7: 04/21/24 08:49 04/21/24 08:49 Labs: Abnormal Lab Results - Last 24 Hours (Table) 04/21/24 04/21/24 04/21/24 Range/Units 08:49 08:49 11:52 RBC 3.28 L (4.30-5.90) m/uL Hgb 10.0 L (13.0-17.5) gm/dL Hct 32.1 L (39.0-53.0) % Lymphocytes # 0.9 L (1.0-4.8) k/uL Potassium 3.4 L (3.5-5.1) mmol/L Glucose 132 H (74-99) mg/dL POC Glucose (mg/dL) 120 H (70-110) mg/dL Calcium 8.2 L (8.4-10.2) mg/dL
--- NOTE | 2024-04-22 15:25 | P.PN ---
Subjective Progress Note Date: 04/22/24 HPI : Presented to the hospital because of concerns of slurred speech and concerns of a possible CVA. He also had concerns of aspiration pneumonia. On admission he was noticed to have new onset atrial fibrillation for which cardiology was consulted. SUBJECTIVE: Patient is having difficulty swallowing and there is concern of possible dysphagia and aspiration pneumonia. Not able to get his p.o. cardiac medications. Hemoglobin is 9.1 and stable, creatinine 0.9 and is stable. Sodium is 147 telemetry shows atrial fibrillation with controlled rate 04/20 Patient is seen today in follow-up. He has not been started on anticoagulation for atrial fibrillation as last CT showed evolving CVA. Patient has failed swallow evaluation and is being evaluated by speech therapy. Blood pressure 122/68, heart rate 100, pulse ox 94% on room air. Repeat blood work reveals hemoglobin 9.1. Potassium 3.2, creatinine 0.83. 04/22 Anticoagulation is on hold for at least 7 days. Patient continues to be n.p.o. and followed closely by therapies. Patient is also followed by neurology and vascular surgery. Blood pressure 134/65, heart rate 87, pulse ox 96% on room air. PHYSICAL EXAMINATION Vital signs reviewed. Head: Normocephalic. Eyes: Sclerae nonicteric. Neck: Brisk carotid upstroke, no jugular venous distention. Lungs: Clear to auscultation. Heart: Irregularly irregular with mild systolic murmur audible Abdomen: Soft nontender, bowel sounds present, Extremities: No edema, Neuro: Awake and alert. 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 Possibility of ischemic cardiomyopathy cannot be ruled out. Currently appears euvolemic Essential hypertension Dysphagia and concerns of aspiration pneumonia Hypernatremia PLAN Continue aspirin rectally and statin, metoprolol 25 mg twice daily once patient is able to take oral medications Patient has not been able to swallow his medications because of dysphagia which is most likely because of his CVA. He have not been able to add further GDMT for his cardiomyopathy. Nurse practitioner note has been reviewed, I agree with documented findings and plan of care. Patient was seen and examined. Objective - Vital Signs Vital signs: Vital Signs Temp 97.4 F L 04/22/24 09:25 Pulse 62 04/22/24 11:45 Resp 16 04/22/24 11:45 BP 115/62 04/22/24 11:45 Pulse Ox 92 L 04/22/24 11:45 FiO2 Intake & Output 04/21/24 04/22/24 04/22/24 18:59 06:59 18:59 Intake Total 240 Output Total 400 400 500 Balance -160 -400 -500 Weight 97.5 kg 95 kg Intake: Oral 240 Output: Urine 400 400 500 Other: Voiding Method External Catheter External Catheter External Catheter # Voids 1 - Labs CBC & Chem 7: 04/21/24 08:49 04/21/24 08:49
[2024-04-22] MEDS: ACETAMINOPHEN TAB 325 MG TAB PO PRN (21:28)
[2024-04-23 07:56] LABS: African American GFR (CKD) >90 (>60 ml/min/1.73 sqM); Anion Gap 3 mmol/L; Blood Urea Nitrogen 12 mg/dL (9-20); Calcium 8.3 mg/dL (8.4-10.2); Carbon Dioxide 26 mmol/L (22-30); Chloride 107 mmol/L (98-107); Glucose 86 mg/dL (74-99); Non-African American GFR(CKD) 83 (>60 ml/min/1.73 sqM); Potassium 3.7 mmol/L (3.5-5.1); Sodium 136 mmol/L (137-145)
--- NOTE | 2024-04-23 13:52 | P.PN ---
Subjective Progress Note Date: 04/23/24 HPI : Presented to the hospital because of concerns of slurred speech and concerns of a possible CVA. He also had concerns of aspiration pneumonia. On admission he was noticed to have new onset atrial fibrillation for which cardiology was consulted. SUBJECTIVE: Patient is having difficulty swallowing and there is concern of possible dysphagia and aspiration pneumonia. Not able to get his p.o. cardiac medications. Hemoglobin is 9.1 and stable, creatinine 0.9 and is stable. Sodium is 147 telemetry shows atrial fibrillation with controlled rate 04/20 Patient is seen today in follow-up. He has not been started on anticoagulation for atrial fibrillation as last CT showed evolving CVA. Patient has failed swallow evaluation and is being evaluated by speech therapy. Blood pressure 122/68, heart rate 100, pulse ox 94% on room air. Repeat blood work reveals hemoglobin 9.1. Potassium 3.2, creatinine 0.83. 04/22 Anticoagulation is on hold for at least 7 days. Patient continues to be n.p.o. and followed closely by therapies. Patient is also followed by neurology and vascular surgery. Blood pressure 134/65, heart rate 87, pulse ox 96% on room air. 04/23 Patient is able to take oral medications. Eliquis remains on hold but he is undergoing CAT scan of the brain tomorrow and may be cleared to start anticoagulation. PHYSICAL EXAMINATION Vital signs reviewed. Head: Normocephalic. Eyes: Sclerae nonicteric. Neck: Brisk carotid upstroke, no jugular venous distention. Lungs: Clear to auscultation. Heart: Irregularly irregular with mild systolic murmur audible Abdomen: Soft nontender, bowel sounds present, Extremities: No edema, Neuro: Awake and alert. 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 Possibility of ischemic cardiomyopathy cannot be ruled out. Currently appears euvolemic Essential hypertension Dysphagia and concerns of aspiration pneumonia Hypernatremia PLAN Continue aspirin 81 mg daily, Lipitor 80 mg at bedtime, metoprolol 25 mg twice daily Continue to evaluate for addition of medications GDMT regarding cardiomyopathy. Nurse practitioner note has been reviewed, I agree with documented findings and plan of care. Patient was seen and examined. Objective - Vital Signs Vital signs: Vital Signs Temp 97.4 F L 04/23/24 11:43 Pulse 61 04/23/24 11:43 Resp 14 04/23/24 11:43 BP 120/59 04/23/24 11:43 Pulse Ox 98 04/23/24 11:56 FiO2 Intake & Output 04/22/24 04/23/24 04/23/24 18:59 06:59 18:59 Intake Total 1020 680 Output Total 825 Balance 195 680 Weight 100 kg Intake: Intake, IV Titration 560 Amount Dextrose 5% in Water 1, 560 000 ml @ 70 mls/hr IV . [id number] [facility] Rx#:[id number] Oral 1020 120 Output: Urine 825 Other: Voiding Method External Catheter External Catheter - Labs CBC & Chem 7: 04/21/24 08:49 04/23/24 05:15 Labs: Abnormal Lab Results - Last 24 Hours (Table) 04/23/24 Range/Units 05:15 Sodium 136 L (137-145) mmol/L Calcium 8.3 L (8.4-10.2) mg/dL
--- NOTE | 2024-04-23 16:07 | P.PN ---
Subjective Progress Note Date: 04/23/24 Subjective: Patient seen at the bedside. No acute events overnight. Patient denies shortness of breath, chest pain. All Systems reviewed and pertinent positives and negatives noted in HPI, all other symptoms are negative Objective: Vital signs reviewed. General: non toxic, no distress, appears at stated age, normal weight Derm: no unusual rashes/lesions, warm Head: atraumatic, normocephalic, symmetric Eyes: EOMI, no lid lag, anicteric sclera, pupils equal round reactive to light ENT: Nose and ears atraumatic Neck: No cervical lymphadenopathy, trachea midline, supple Mouth: no lip lesion, mucus membranes moist Cardiovascular: S1S2 reg, no murmur, positive dorsalis pedis pulse bilateral, no edema Lungs: CTA bilateral, no rhonchi, no rales, no accessory muscle use Abdominal: soft, nontender to palpation, no guarding Neuro: Left facial droop. Strength 3/5 bilateral LE, 4/5 LUE and 5/5 RUE. Psych: Alert, oriented, appropriate affect Data reviewed today: Sodium 136, potassium 3.7, chloride 107, bicarb 26, BUN 3, creatinine 12, EGFR 83, glucose 86, magnesium 2.0 No new images. Assessment and Plan: 83 year old M with PMH of HTN, CAD presented to the ED for slurred speech on 04/16. Noted to have new onset A-Fib. Diagnosed with large right parietal occipital CVA. Repeat CT head showing maturing acute to subacute right REPORTING LEAD infarct without midline shift or hemorrhagic conversion. #1. Large right parietal occipital CVA Repeat CT on 04/24 prior to starting Eliquis. ASA 81 mg PO QD. Lipitor 80 mg PO QHS. Telemetry monitoring. Fall precautions. Advanced neurochecks. PT/OT/ST on board. ST recommending NDD3 diet. Neurology on board. Eliquis on hold, pending brain CT tomorrow #2. Right ICA stenosis Vascular recommends outpatient follow up for intervention. #3. New onset A-Fib Metoprolol 25 mg PO BID. AC per Neurology recommendations. #4. Hypokalemia KCl 20 meq IV x 1 04/21 #5. Hypomagnesemia Mag sulfate 2g IV x 1 04/21. #6. Normocytic anemia Monitor. Stable. No signs of acute bleeding. #7. Hypertension Metoprolol as above. Monitor vitals and adjust medications if necessary. F: None E: Replete as needed N: Heart healthy diet A: Ambulatory DVT ppx: Lovenox 40 mg subcu daily Code Status: No code Anticipated discharge place: Pending clinical course Anticipated discharge date: Pending clinical course Patient was seen and examined by me and the resident. I agree with the subjective and objective as above. We discussed the assessment and plan as documented below: No changes clinically. BMP Na 136, Ca 8.3. Plans for repeat CT head tomorrow. Discussed with Dr. Fernandez. Large right parietal occipital CVA: Repeat CT on 04/24 prior to starting Eliquis. ASA 81 mg PO QD. Lipitor 80 mg PO QHS. Telemetry monitoring. Fall precautions. Advanced neurochecks. PT/OT/ST on board. ST recommending NDD3 diet. Neurology on board. Right ICA stenosis: Vascular recommends outpatient follow up for intervention. New onset A-Fib: Metoprolol 25 mg PO BID. AC per Neurology recommendations. Normocytic anemia: Monitor. Stable. No signs of acute bleeding. Hypertension: Metoprolol as above. Monitor vitals and adjust medications if necessary. Resolved: HypoMag, HypoK Objective - Vital Signs Vital signs: Vital Signs Temp 97.4 F L 04/23/24 15:23 Pulse 73 04/23/24 15:23 Resp 16 04/23/24 15:23 BP 142/78 04/23/24 15:23 Pulse Ox 98 04/23/24 15:23 FiO2 Intake & Output 04/22/24 04/23/24 04/23/24 18:59 06:59 18:59 Intake Total 1020 680 Output Total 825 Balance 195 680 Weight 100 kg Intake: Intake, IV Titration 560 Amount Dextrose 5% in Water 1, 560 000 ml @ 70 mls/hr IV . [id number] [facility] Rx#:[id number] Oral 1020 120 Output: Urine 825 Other: Voiding Method External Catheter External Catheter - Labs CBC & Chem 7: 04/21/24 08:49 04/23/24 05:15 Labs: Abnormal Lab Results - Last 24 Hours (Table) 04/23/24 Range/Units 05:15 Sodium 136 L (137-145) mmol/L Calcium 8.3 L (8.4-10.2) mg/dL
[2024-04-24 08:38] LABS: African American GFR (CKD) >90 (>60 ml/min/1.73 sqM); Anion Gap 2 mmol/L; Blood Urea Nitrogen 10 mg/dL (9-20); Calcium 8.2 mg/dL (8.4-10.2); Carbon Dioxide 28 mmol/L (22-30); Chloride 106 mmol/L (98-107); Glucose 97 mg/dL (74-99); Non-African American GFR(CKD) 79 (>60 ml/min/1.73 sqM); Potassium 3.9 mmol/L (3.5-5.1); Sodium 136 mmol/L (137-145)
--- NOTE | 2024-04-24 10:21 | CT ---
EXAMINATION TYPE: CT brain wo con DATE OF EXAM: 04/24/2024 COMPARISON: 04/19/2024 HISTORY: 83-year-old male CVA TECHNIQUE: Examination was done in axial plane without intravenous contrast. Coronal and sagittal r econstructions performed. CT DLP: 1158.4 mGycm Automated exposure control for dose reduction was used. FINDINGS: Ongoing cortical and subcortical hypodensity right occipital lobe extending into the posterior right parietal and posterior temporal lobes. Associated sulcal effacement. Loss of lopez-white matter differentiation lateral right frontal lobe, for example, axial image 42 and 40 is now more apparent. Background moderate patchy white matter hypodensities in both cerebral ralph spheres. Scattered calcifications in the carotid siphons. Mild ventricular prominence is unchanged, likely due to central cerebral atrophy. No acute intracranial hemorrhage, midline shift, or herniation is seen. Air-fluid level left maxillary sinus. Mastoid air cells are well pneumatized. Orbital blowout fractur e posterior medial and inferior right orbital wall. Underlying nasal septum. IMPRESSION: 1. 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 2. Possible acute to subacute ischemia involving the right lateral frontal lobe given loss of lopez-wh ite matter differentiation, not clearly seen on patient's prior study. Correlate for any new neurolog ic deficits. 3. No hemorrhagic transformation seen. 4. Air fluid level left sphenoid sinus. Findings may be seen with acute sinusitis.
--- NOTE | 2024-04-24 11:09 | FL ---
Exam Date: 04/24/2024 10:53 AM. Modified barium swallow for dysphagia. Consistencies administered: Various consistency of barium. Fluoro time: Minutes 33 seconds No images were sent to PACS. Please see speech pathology report. DAP: Not Reported mGym2 Gycm2
[2024-04-24] MEDS ORDERED: HEPARIN SODIUM 1,000 UN/ML (10ML VL) IV PRN (12:07)
[2024-04-24 13:57] VITALS: BMI 29.8
--- NOTE | 2024-04-24 15:05 | P.PN ---
Subjective Progress Note Date: 04/24/24 HPI : Presented to the hospital because of concerns of slurred speech and concerns of a possible CVA. He also had concerns of aspiration pneumonia. On admission he was noticed to have new onset atrial fibrillation for which cardiology was consulted. SUBJECTIVE: Patient is having difficulty swallowing and there is concern of possible dysphagia and aspiration pneumonia. Not able to get his p.o. cardiac medications. Hemoglobin is 9.1 and stable, creatinine 0.9 and is stable. Sodium is 147 telemetry shows atrial fibrillation with controlled rate 04/20 Patient is seen today in follow-up. He has not been started on anticoagulation for atrial fibrillation as last CT showed evolving CVA. Patient has failed swallow evaluation and is being evaluated by speech therapy. Blood pressure 122/68, heart rate 100, pulse ox 94% on room air. Repeat blood work reveals hemoglobin 9.1. Potassium 3.2, creatinine 0.83. 04/22 Anticoagulation is on hold for at least 7 days. Patient continues to be n.p.o. and followed closely by therapies. Patient is also followed by neurology and vascular surgery. Blood pressure 134/65, heart rate 87, pulse ox 96% on room air. 04/23 Patient is able to take oral medications. Eliquis remains on hold but he is undergoing CAT scan of the brain tomorrow and may be cleared to start anticoagulation. 04/24 Patient underwent CAT scan of the brain today with results of ongoing evolution of the subacute right BASE MANAGER territory infarct. Possible acute to subacute ischemia involving the right lateral frontal lobe given loss of lopez-white matter differentiation. No hemorrhagic transformation seen. We are planning to start patient on Eliquis once neurology has cleared him. PHYSICAL EXAMINATION Vital signs reviewed. Head: Normocephalic. Eyes: Sclerae nonicteric. Neck: Brisk carotid upstroke, no jugular venous distention. Lungs: Clear to auscultation. Heart: Irregularly irregular with mild systolic murmur audible Abdomen: Soft nontender, bowel sounds present, Extremities: No edema, Neuro: Awake and alert. 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 Possibility of ischemic cardiomyopathy cannot be ruled out. Currently appears euvolemic Essential hypertension Dysphagia and concerns of aspiration pneumonia Hypernatremia PLAN Continue aspirin 81 mg daily, Lipitor 80 mg at bedtime, metoprolol 25 mg twice daily Patient to be started on Eliquis once cleared by neurology. Continue to evaluate for addition of medications GDMT regarding cardiomyopathy. Nurse practitioner note has been reviewed, I agree with documented findings and plan of care. Patient was seen and examined. Objective - Vital Signs Vital signs: Vital Signs Temp 97.3 F L 04/24/24 12:00 Pulse 68 04/24/24 14:00 Resp 14 04/24/24 14:00 BP 118/72 04/24/24 12:00 Pulse Ox 98 04/24/24 12:00 FiO2 Intake & Output 04/23/24 04/24/24 04/24/24 18:59 06:59 18:59 Intake Total 902 Output Total 550 700 Balance 902 -550 -700 Weight 102.5 kg 102.5 kg Intake: Intake, IV Titration 560 Amount Dextrose 5% in Water 1, 560 000 ml @ 70 mls/hr IV . [id number] [facility] Rx#:[id number] Oral 342 Output: Urine 550 700 Other: Voiding Method External Catheter External Catheter External Catheter # Voids 450 1 - Labs CBC & Chem 7: 04/21/24 08:49 04/24/24 07:46 Labs: Abnormal Lab Results - Last 24 Hours (Table) 04/24/24 Range/Units 07:46 Sodium 136 L (137-145) mmol/L Calcium 8.2 L (8.4-10.2) mg/dL
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
[2024-04-24 15:51] LABS: Basophils % (A) 0 %; Eosinophils # (A) 0.2 k/uL (0-0.7); Eosinophils % (A) 2 %; HCT 33.4 % (39.0-53.0); HGB 10.4 gm/dL (13.0-17.5); Hypochromasia Marked; Lymphocytes # (A) 1.1 k/uL (1.0-4.8); Lymphocytes % (A) 15 %; MCH 29.8 pg (25.0-35.0); MCV 96.1 fL (80.0-100.0); Mean Platelet Volume 7.9; Monocytes # (A) 0.5 k/uL (0-1.0); Monocytes % (A) 6 %; Neutrophils # (A) 5.6 k/uL (1.3-7.7); Neutrophils % (A) 76 %; Platelet Count 413 k/uL (150-450); RBC 3.48 m/uL (4.30-5.90); RDW 14.6 % (11.5-15.5); WBC 7.4 k/uL (3.8-10.6)
[2024-04-24 16:09] LABS: INR 1.1 (<1.2); Partial Thromboplastin Time 29.6 sec (22.0-30.0); Prothrombin Time 11.7 sec (10.0-12.5)
[2024-04-24] MEDS: HEPARIN SOD,PORK IN 0.45% NACL 25,000 UNIT in 0.45% NACL 1 250ML.BAG IV SCH (16:22)
--- NOTE | 2024-04-24 18:11 | P.PN ---
Subjective Progress Note Date: 04/24/24 Subjective: Patient seen at the bedside. No acute events overnight. Patient denies shortness of breath, chest pain. All Systems reviewed and pertinent positives and negatives noted in HPI, all other symptoms are negative Objective: Vital signs reviewed. General: non toxic, no distress, appears at stated age, normal weight Derm: no unusual rashes/lesions, warm Head: atraumatic, normocephalic, symmetric Eyes: EOMI, no lid lag, anicteric sclera, pupils equal round reactive to light Cardiovascular: S1S2 reg, no murmur, positive dorsalis pedis pulse bilateral, no edema Lungs: CTA bilateral, no rhonchi, no rales, no accessory muscle use Abdominal: soft, nontender to palpation, no guarding Neuro: Left facial droop. Strength 3/5 bilateral LE, 4/5 LUE and 5/5 RUE. Psych: AO x 1 Data reviewed today: WBC 7.4, hemoglobin 10.4, hematocrit 33.4, MCV 96.1, PT 11.7, INR 1.1, APTT 29.6, sodium 136, potassium 3.9, chloride 109, bicarb 28, CT brain shows possible acute to subacute ischemia involving the right lateral frontal lobe not seen on previous CT brain. No acute intracranial hemorrhage, m idline shift or herniation. Assessment and Plan: 83 year old M with PMH of HTN, CAD presented to the ED for slurred speech on 04/16. Noted to have new onset A-Fib. Diagnosed with large right parietal occipital CVA. 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 #1. Large right parietal occipital CVA # Small right lateral frontal lobe CVA CT brain (04/24/2024) shows possible acute to subacute ischemia involving the right lateral frontal lobe not seen on previous CT brain (04/19/2024). PT/OT/ST on board. ST recommending pureed/thin liquids P.o. medications on hold Aspirin 300 mg rectal daily Continue heparin drip Telemetry monitoring. Fall precautions. Advanced neurochecks. Neurology on board. #3. Right ICA stenosis Vascular recommends outpatient follow up for intervention. #4. New onset A-Fib Metoprolol 25 mg PO BID. AC per Neurology recommendations. #4. Hypokalemia KCl 20 meq IV x 1 04/21 #6. Hypomagnesemia Mag sulfate 2g IV x 1 04/21. #7. Normocytic anemia Monitor. Stable. No signs of acute bleeding. #8. Hypertension Metoprolol as above. Monitor vitals and adjust medications if necessary. F: None E: Replete as needed N: Pured diet A: Fall precautions DVT ppx: Heparin drip Code Status: No code Anticipated discharge place: Talked to patient's POA Jermaine Coleman who initially agreed for hospice care for the patient. Per case management associate, patient's POA has not made any decision yet. He is out of town and will return on Saturday. Therefore decision for discharge place is pending. Anticipated discharge date: Pending clinical course Patient was seen and examined by me and the resident. I agree with the subjective and objective as above. We discussed the assessment and plan as documented below: Failed swallow eval. Currently NPO. Discussed with Dr. Fernandez, CT head appears to show new infarct. Started on ASA 300 mg rectally and Heparin drip. Plans for discussion with POA with regard to Hospice. Patient is poor prognosis and not a good candidate for PEG tube. Large right parietal occipital CVA: ASA 300 mg rectally. Lipitor 80 mg PO QHS. Telemetry monitoring. Fall precautions. Advanced neurochecks. PT/OT/ST on board. NPO. Neurology on board. Right ICA stenosis: Vascular recommends outpatient follow up for intervention. New onset A-Fib: Metoprolol 25 mg PO BID. Start low intensity heparin drip. Normocytic anemia: Monitor. Stable. No signs of acute bleeding. Hypertension: Metoprolol as above. Monitor vitals and adjust medications if necessary. Resolved: HypoMag, HypoK Objective - Vital Signs Vital signs: Vital Signs Temp 97.3 F L 04/24/24 16:00 Pulse 72 04/24/24 16:00 Resp 14 04/24/24 16:00 BP 121/70 04/24/24 16:00 Pulse Ox 96 04/24/24 16:00 FiO2 Intake & Output 04/23/24 04/24/24 04/24/24 18:59 06:59 18:59 Intake Total 902 560 Output Total 550 700 Balance 902 -550 -140 Weight 102.5 kg 102.5 kg Intake: Intake, IV Titration 560 560 Amount Dextrose 5% in Water 1, 560 540 000 ml @ 70 mls/hr IV . [id number] [facility] Rx#:[id number] Heparin Sod,Pork in 0.45% 20 NaCl 25,000 unit In 0.45 % NaCl 1 250ml.bag @ 9. 756 UNITS/KG/HR 10 mls/hr IV .Q24H [facility] Rx#: [id number] Oral 342 Output: Urine 550 700 Other: Voiding Method External Catheter External Catheter External Catheter # Voids 450 1 - Labs CBC & Chem 7: 04/24/24 15:25 04/24/24 07:46 Labs: Abnormal Lab Results - Last 24 Hours (Table) 04/24/24 04/24/24 Range/Units 07:46 15:25 RBC 3.48 L (4.30-5.90) m/uL Hgb 10.4 L (13.0-17.5) gm/dL Hct 33.4 L (39.0-53.0) % Sodium 136 L (137-145) mmol/L Calcium 8.2 L (8.4-10.2) mg/dL
[2024-04-25] MEDS: PANTOPRAZOLE 40 MG/10 ML VIAL IVP SCH (08:22)
[2024-04-25] MEDS: ASPIRIN 300 MG SUPP RECTAL SCH (08:47)
[2024-04-25 10:06] LABS: Basophils % (A) 0 %; Eosinophils # (A) 0.2 k/uL (0-0.7); Eosinophils % (A) 3 %; HCT 30.1 % (39.0-53.0); HGB 9.5 gm/dL (13.0-17.5); Hypochromasia Slight; INR 1.1 (<1.2); Lymphocytes % (A) 17 %; MCH 30.3 pg (25.0-35.0); MCHC 31.7 g/dL (31.0-37.0); MCV 95.5 fL (80.0-100.0); Mean Platelet Volume 8.9; Monocytes # (A) 0.5 k/uL (0-1.0); Monocytes % (A) 8 %; Neutrophils % (A) 70 %; Platelet Count 372 k/uL (150-450); Prothrombin Time 11.7 sec (10.0-12.5); RBC 3.15 m/uL (4.30-5.90); WBC 5.7 k/uL (3.8-10.6)
--- NOTE | 2024-04-25 11:53 | P.PN ---
Subjective Progress Note Date: 04/25/24 HPI : Presented to the hospital because of concerns of slurred speech and concerns of a possible CVA. He also had concerns of aspiration pneumonia. On admission he was noticed to have new onset atrial fibrillation for which cardiology was consulted. SUBJECTIVE: Patient is having difficulty swallowing and there is concern of possible dysphagia and aspiration pneumonia. Not able to get his p.o. cardiac medications. Hemoglobin is 9.1 and stable, creatinine 0.9 and is stable. Sodium is 147 telemetry shows atrial fibrillation with controlled rate 04/20 Patient is seen today in follow-up. He has not been started on anticoagulation for atrial fibrillation as last CT showed evolving CVA. Patient has failed swallow evaluation and is being evaluated by speech therapy. Blood pressure 122/68, heart rate 100, pulse ox 94% on room air. Repeat blood work reveals hemoglobin 9.1. Potassium 3.2, creatinine 0.83. 04/22 Anticoagulation is on hold for at least 7 days. Patient continues to be n.p.o. and followed closely by therapies. Patient is also followed by neurology and vascular surgery. Blood pressure 134/65, heart rate 87, pulse ox 96% on room air. 04/23 Patient is able to take oral medications. Eliquis remains on hold but he is undergoing CAT scan of the brain tomorrow and may be cleared to start anticoagulation. 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 Possible acute to subacute ischemia involving the right lateral frontal lobe given loss of lopez-white matter differentiation. No hemorrhagic transformation seen. We are planning to start patient on Eliquis once neurology has cleared him. 04/25 Patient complains of headache and legs hurting him. He has been started on heparin, and back to n.p.o. status. There is a plan in place for patient to go to hospice on Saturday. PHYSICAL EXAMINATION Vital signs reviewed. Head: Normocephalic. Eyes: Sclerae nonicteric. Neck: Brisk carotid upstroke, no jugular venous distention. Lungs: Clear to auscultation. Heart: Irregularly irregular with mild systolic murmur audible Abdomen: Soft nontender, bowel sounds present, Extremities: No edema, Neuro: Awake and alert. ASSESSMENT Right parietal lobe CVA as well as suspicious acute right frontal ischemic stroke Newly Diagnosed atrial fibrillation, currently rate controlled atrial fibri llation, paroxysmal Newly diagnosed cardiomyopathy with high risk for hemorrhagic conversion with a EF of 35 to 40%, could be related to acute CVA and A-fib tachycardia induced. Possibility of ischemic cardiomyopathy cannot be ruled out. Currently appears euvolemic Essential hypertension Dysphagia and concerns of aspiration pneumonia Hypernatremia PLAN Continue aspirin and Tylenol rectally Continue heparin drip Cardiology will sign off this case and follow on an as-needed basis. Please reconsult for any new concerns. Nurse practitioner note has been reviewed, I agree with documented findings and plan of care. Patient was seen and examined. Objective - Vital Signs Vital signs: Vital Signs Temp 97.7 F 04/25/24 08:21 Pulse 78 04/25/24 08:21 Resp 17 04/25/24 08:21 BP 145/67 04/25/24 08:21 Pulse Ox 97 04/25/24 08:21 FiO2 Intake & Output 04/24/24 04/25/24 04/25/24 18:59 06:59 18:59 Intake Total 560 106 Output Total 1100 975 Balance -540 -869 Weight 102.5 kg 97 kg Intake: IV 20 Invasive Line 2 20 Intake, IV Titration 560 86 Amount Dextrose 5% in Water 1, 540 000 ml @ 70 mls/hr IV . [id number] [facility] Rx#:[id number] Heparin Sod,Pork in 0.45% 20 86 NaCl 25,000 unit In 0.45 % NaCl 1 250ml.bag @ 9. 756 UNITS/KG/HR 10 mls/hr IV .Q24H [facility] Rx#: [id number] Output: Urine 1100 975 Other: Voiding Method External Catheter External Catheter External Catheter - Labs CBC & Chem 7: 04/25/24 09:06 04/24/24 07:46 Labs: Abnormal Lab Results - Last 24 Hours (Table) 04/24/24 04/24/24 Range/Units 15:25 23:47 RBC 3.48 L (4.30-5.90) m/uL Hgb 10.4 L (13.0-17.5) gm/dL Hct 33.4 L (39.0-53.0) % APTT 39.0 H (22.0-30.0) sec
--- NOTE | 2024-04-25 14:29 | P.PN ---
Subjective Progress Note Date: 04/25/24 Subjective: Patient seen at the bedside. No acute events overnight. Patient denies shortness of breath, chest pain. All Systems reviewed and pertinent positives and negatives noted in HPI, all other symptoms are negative Objective: Vital signs reviewed. General: non toxic, no distress, appears at stated age, normal weight Derm: no unusual rashes/lesions, warm Head: atraumatic, normocephalic, symmetric Eyes: EOMI, no lid lag, anicteric sclera, pupils equal round reactive to light Cardiovascular: S1S2 reg, no murmur, positive dorsalis pedis pulse bilateral, no edema Lungs: CTA bilateral, no rhonchi, no rales, no accessory muscle use Abdominal: soft, nontender to palpation, no guarding Neuro: Left facial droop. Strength 3/5 bilateral LE, 4/5 LUE and 5/5 RUE. Psych: AO x 1 Data reviewed today: WBC 5.7, hemoglobin 9.5, hematocrit 30.1, platelet count 372, PT 11.7, INR 1.1, APTT 27.5 Assessment and Plan: 83 year old M with PMH of HTN, CAD presented to the ED for slurred speech on 04/16. Noted to have new onset A-Fib. Diagnosed with large right parietal occipital CVA. 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 CT brain (04/24/2024) shows new ischemic infarct involving the right lateral frontal lobe not seen on previous CT brain (04/19/2024). Patient has poor prognosis and is not a good candidate for PEG tube. #1. Large right parietal occipital CVA # Small right lateral frontal lobe CVA CT brain (04/24/2024) shows possible acute to subacute ischemia involving the right lateral frontal lobe not seen on previous CT brain (04/19/2024). PT/OT/ST on board. Patient failed swallowing evaluation: Currently on n.p.o. P.o. medications on hold Aspirin 300 mg rectal daily Continue with low intensity heparin drip Telemetry monitoring. Fall precautions. Advanced neurochecks. Neurology on board. #3. Right ICA stenosis Vascular recommends outpatient follow up for intervention. #4. New onset A-Fib Metoprolol 25 mg PO BID. AC per Neurology recommendations. #4. Hypokalemia Resolved #6. Hypomagnesemia Resolved #7. Normocytic anemia Monitor. Stable. No signs of acute bleeding. #8. Hypertension Metoprolol as above. Monitor vitals and adjust medications if necessary. F: None E: Replete as needed: Repeat BMP in morning N: N.p.o. A: Fall precautions DVT ppx: Heparin drip Code Status: No code Anticipated discharge place: Talked to patient's POA Jermaine Coleman who initially agreed for hospice care for the patient. Per case briefer, patient's POA has not made any decision yet. He is out of town and will return on Saturday. Therefore decision for discharge place is pending. Anticipated discharge date: Pending clinical course Patient was seen and examined by me and the resident. I agree with the subjective and objective as above. We discussed the assessment and plan as documented below: Currently NPO. On ASA 300 mg rectally and Heparin drip. Plans for discussion with POA with regard to Hospice. Patient is poor prognosis and not a good candidate for PEG tube. POA would like to wait until Saturday to decide. Large right parietal occipital CVA: ASA 300 mg rectally. Lipitor 80 mg PO QHS. Telemetry monitoring. Fall precautions. Advanced neurochecks. PT/OT/ST on board. NPO. Neurology on board. Right ICA stenosis: Vascular recommends outpatient follow up for intervention. New onset A-Fib: Metoprolol 25 mg PO BID. Low intensity heparin drip. Normocytic anemia: Monitor. Stable. No signs of acute bleeding. Hypertension: Metoprolol as above. Monitor vitals and adjust medications if necessary. Resolved: HypoMag, HypoK Objective - Vital Signs Vital signs: Vital Signs Temp 97.7 F 04/25/24 08:21 Pulse 78 04/25/24 08:21 Resp 17 04/25/24 08:21 BP 145/67 04/25/24 08:21 Pulse Ox 97 04/25/24 08:21 FiO2 Intake & Output 04/24/24 04/25/24 04/25/24 18:59 06:59 18:59 Intake Total 560 106 Output Total 1100 975 800 Balance -540 -869 -800 Weight 102.5 kg 97 kg Intake: IV 20 Invasive Line 2 20 Intake, IV Titration 560 86 Amount Dextrose 5% in Water 1, 540 000 ml @ 70 mls/hr IV . [id number] [facility] Rx#:[id number] Heparin Sod,Pork in 0.45% 20 86 NaCl 25,000 unit In 0.45 % NaCl 1 250ml.bag @ 9. 756 UNITS/KG/HR 10 mls/hr IV .Q24H [facility] Rx#: [id number] Output: Urine 1100 975 800 Other: Voiding Method External Catheter External Catheter External Catheter - Labs CBC & Chem 7: 04/25/24 09:06 04/24/24 07:46 Labs: Abnormal Lab Results - Last 24 Hours (Table) 04/24/24 04/24/24 Range/Units 15:25 23:47 RBC 3.48 L (4.30-5.90) m/uL Hgb 10.4 L (13.0-17.5) gm/dL Hct 33.4 L (39.0-53.0) % APTT 39.0 H (22.0-30.0) sec
[2024-04-26 12:02] LABS: African American GFR (CKD) >90 (>60 ml/min/1.73 sqM); Anion Gap 7 mmol/L; Blood Urea Nitrogen 11 mg/dL (9-20); Calcium 8.7 mg/dL (8.4-10.2); Carbon Dioxide 23 mmol/L (22-30); Chloride 106 mmol/L (98-107); Glucose 107 mg/dL (74-99); Non-African American GFR(CKD) 85 (>60 ml/min/1.73 sqM); Potassium 4.2 mmol/L (3.5-5.1); Sodium 136 mmol/L (137-145)
--- NOTE | 2024-04-26 12:20 | P.PN ---
Subjective Progress Note Date: 04/26/24 83 year old M with PMH of HTN, CAD presented to the ED for slurred speech on 04/16. Noted to have new onset A-Fib. Diagnosed with large right parietal occipital CVA. 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 CT head was repeated on 04/24 which showed suspicion for new acute right frontal stroke. Patient also failed swallow evaluation and is currently NPO. He is started on a Heparin drip and rectal aspirin. Awaiting decision from POA with regard to hospice. Patient is poor prognosis and poor candidate for PEG. 04/26 Patient was seen and examined. Confused. Significantly weak. APTT 80.5. Maintained on heparin drip. POA apparently will be here on Saturday to decide on Hospice care. BMP Na 136, glu 107. General: non toxic, no distress, appears at stated age Derm: warm, dry Head: atraumatic, normocephalic, symmetric Eyes: EOMI, no lid lag, anicteric sclera Mouth: no lip lesion, mucus membranes moist Cardiovascular: S1S2 irreg, no murmur Lungs: CTA bilateral, no rhonchi, no rales , no accessory muscle use Ext: no gross muscle atrophy, no edema, no contractures Neuro: Left facial droop. Strength 3/5 bilateral LE, 4/5 GEOVANNA and 5/5 RUE. Psych: Alert, oriented, x 1 Based on my assessment of this patient, this patient meets a high complexity level of care. Large right parietal occipital CVA: ASA 300 mg rectally. Lipitor 80 mg PO QHS. Telemetry monitoring. Fall precautions. Advanced neurochecks. PT/OT/ST on board. NPO. Neurology on board. Right lateral frontal lobe CVA: Seen on CT head 04/24. Management as above. Dysphagia: NDD1 per ST with 1:1 supervision if able. Aspiration precautions. Right ICA stenosis: Vascular recommends outpatient follow up for intervention. New onset A-Fib: Metoprolol 25 mg PO BID. Low intensity heparin drip. Monitor APTT and signs of any bleeding. Normocytic anemia: Monitor. Stable. No signs of acute bleeding. Hypertension: BP 109/52. Metoprolol as above. Monitor vitals and adjust medic ations if necessary. Resolved: HypoMag, HypoK CODE STATUS: NO CODE DVT Prophylaxis: Lovenox SQ GI Prophylaxis: Protonix PO Designated medical POA if patient is not able to make medical decisions for themselves: I have reviewed the following it sales consultant notes: Cardiology. I have reviewed the results of the following tests: APTT. BMP. I have ordered the following tests: I have discussed the care of this patient with the following independent historian: I have independently interpreted the following test below: I have discussed the management of this patient with the following physician: Objective - Vital Signs Vital signs: Vital Signs Temp 97.9 F 04/26/24 03:19 Pulse 64 04/26/24 03:19 Resp 17 04/26/24 03:19 BP 109/52 04/26/24 03:19 Pulse Ox 95 04/26/24 03:19 FiO2 Intake & Output 04/25/24 04/26/24 04/26/24 18:59 06:59 18:59 Intake Total 218.702 100.133 Output Total 800 400 Balance -581.298 -299.867 Weight 98 kg Intake: IV 20 Invasive Line 2 20 Intake, IV Titration 218.702 80.133 Amount Heparin Sod,Pork in 0.45% 218.702 80.133 NaCl 25,000 unit In 0.45 % NaCl 1 250ml.bag @ 9. 756 UNITS/KG/HR 10 mls/hr IV .Q24H [facility] Rx#: [id number] Output: Urine 800 400 Other: Voiding Method External Catheter External Catheter - Labs CBC & Chem 7: 04/25/24 09:06 04/26/24 10:47 Labs: Abnormal Lab Results - Last 24 Hours (Table) 04/25/24 04/25/24 04/26/24 Range/Units 09:06 16:06 00:00 RBC 3.15 L (4.30-5.90) m/uL Hgb 9.5 L (13.0-17.5) gm/dL Hct 30.1 L (39.0-53.0) % APTT 109.4 H* 80.5 H (22.0-30.0) sec
[2024-04-27 08:00] LABS: African American GFR (CKD) >90 (>60 ml/min/1.73 sqM); Anion Gap 4 mmol/L; Blood Urea Nitrogen 13 mg/dL (9-20); Calcium 8.5 mg/dL (8.4-10.2); Carbon Dioxide 26 mmol/L (22-30); Chloride 108 mmol/L (98-107); Glucose 96 mg/dL (74-99); Non-African American GFR(CKD) 83 (>60 ml/min/1.73 sqM); Sodium 138 mmol/L (137-145)
--- NOTE | 2024-04-27 13:00 | P.PN ---
Subjective Progress Note Date: 04/27/24 Subjective: Patient seen at the bedside. No acute events overnight. Patient denies shortness of breath, chest pain. Patient seems less confused with improvement in mentation compared to yesterday. All Systems reviewed and pertinent positives and negatives noted in HPI, all other symptoms are negative Objective: Vital signs reviewed. General: non toxic, no distress, appears at stated age, normal weight Derm: no unusual rashes/lesions, warm Head: atraumatic, normocephalic, symmetric Eyes: EOMI, no lid lag, anicteric sclera, pupils equal round reactive to light Cardiovascular: S1S2 irreg, no murmur, positive dorsalis pedis pulse bilateral, no edema Lungs: CTA bilateral, no rhonchi, no rales, no accessory muscle use Abdominal: soft, nontender to palpation, no guarding Neuro: Left facial droop. Strength 3/5 bilateral LE, 4/5 LUE and 5/5 RUE. Psych: AO x 2 Data reviewed today: Sodium 138, potassium 4.0, chloride 108, bicarb 26, BUN 13, creatinine 0.7, glucose 96, calcium 8.5 APTT 68.2 Assessment and Plan: 83 year old M with PMH of HTN, CAD presented to the ED for slurred speech on 04/16. Patient is admitted for multiple CVA events. CAT scan of the head show right parietal occipital CVA at the time of admission and a new right lateral frontal lobe CVA on 04/24/2024. Patient also had a new onset A-fib during this admission. patient has poor prognosis and is not a good candidate for PEG tube. #Large right parietal occipital CVA #Small right lateral frontal lobe CVA CT brain (04/24/2024) shows possible acute to subacute ischemia involving the right lateral frontal lobe not seen on previous CT brain (04/19/2024). PT/OT/ST on board. Start aspirin 81 mg p.o. daily; aspirin 300 mg rectally has been discontinued Continue with Lipitor 80 mg p.o. at bedtime Start Eliquis 5 mg p.o. twice daily; discontinue low intensity heparin drip Telemetry monitoring. Fall precautions. Advanced neurochecks. Neurology on board. #Dysphagia Patient to continue with pureed diet Aspiration precautions Resume oral medications # Symptomatic right ICA stenosis CTA of head and neck on this admission shows right ICA 70% right ICA stenosis Vascular surgery recommends outpatient follow-up for intervention. #New onset A-Fib Metoprolol 25 mg PO BID. On Eliquis 5 twice daily #Hypokalemia #Hypomagnesemia Resolved #Normocytic anemia Monitor. Stable. No signs of acute bleeding. #Hypertension Metoprolol as above. Monitor vitals and adjust medications if necessary. F: D5W drip at 70 cc/h, discontinue once oral intake improves E: Replete as needed N: Pureed diet A: Fall precautions DVT ppx: Eliquis 5 mg p.o. twice daily GI prophylaxis: Protonix 40 mg OD daily Code Status: No code Anticipated discharge place: Further goals of care discussion with POA tomorrow, likely needs long-term facility Anticipated discharge date: Pending clinical course I have seen and evaluated the patient today. Discussed with the resident and agree with the residents finding and plan as documented in the resident's note. Changes highlighted in blue font. Objective - Vital Signs Vital signs: Vital Signs Temp 98 F 04/27/24 04:00 Pulse 73 04/27/24 04:00 Resp 19 04/27/24 04:00 BP 144/65 04/27/24 04:00 Pulse Ox 97 04/27/24 04:00 FiO2 Intake & Output 04/26/24 04/26/24 04/27/24 06:59 18:59 06:59 Intake Total 100.133 236.667 30 Output Total 400 600 700 Balance -299.867 -363.333 -670 Weight 98 kg 97.6 kg Intake: IV 20 10 30 Invasive Line 2 20 10 Invasive Line 3 10 Invasive Line 4 20 Intake, IV Titration 80.133 108.667 Amount Heparin Sod,Pork in 0.45% 80.133 108.667 NaCl 25,000 unit In 0.45 % NaCl 1 250ml.bag @ 9. 756 UNITS/KG/HR 10 mls/hr IV .Q24H [facility] Rx#: [id number] Oral 118 Output: Urine 400 600 700 Other: Voiding Method External Catheter External Catheter External Catheter # Voids 1 - Labs CBC & Chem 7: 04/25/24 09:06 04/27/24 05:57 Labs: Abnormal Lab Results - Last 24 Hours (Table) 04/26/24 04/26/24 04/27/24 Range/Units 10:47 14:10 05:57 APTT 64.5 H 68.2 H (22.0-30.0) sec Sodium 136 L (137-145) mmol/L Glucose 107 H (74-99) mg/dL
[2024-04-27] MEDS: APIXABAN 5 MG TAB PO SCH (20:32)
[2024-04-28] MEDS: PANTOPRAZOLE 40 MG TABLET PO SCH (06:26)
[2024-04-28 08:17] LABS: African American GFR (CKD) >90 (>60 ml/min/1.73 sqM); Anion Gap 1 mmol/L; Blood Urea Nitrogen 14 mg/dL (9-20); Calcium 8.4 mg/dL (8.4-10.2); Carbon Dioxide 29 mmol/L (22-30); Chloride 106 mmol/L (98-107); Glucose 98 mg/dL (74-99); Non-African American GFR(CKD) 80 (>60 ml/min/1.73 sqM); Potassium 4.1 mmol/L (3.5-5.1); Sodium 136 mmol/L (137-145)
[2024-04-28] MEDS: ASPIRIN 81 MG PO SCH (08:49)
[2024-04-28] MEDS: DAPAGLIFLOZIN PROPANEDIOL 5 MG TABLET PO SCH (11:06)
--- NOTE | 2024-04-28 15:36 | P.DS ---
Providers Date of admission: 04/16/24 19:55 Expected date of discharge: 04/28/24 Attending physician: Ty Meeks MD Consults: 04/16/24 18:20 Consult Physician Routine Consulting Provider: Reese Melara Consult Reason/Comments: new onset a-fib Do you want consulting provider notified?: Already Contacted Consult Physician Routine Consulting Provider: Kimberli Yang Consult Reason/Comments: stroke Do you want consulting provider notified?: Already Contacted Primary care physician: Stated None Hospital Course: Discharge Diagnosis: 1. Right parietal occipital CVA 2. Right lateral frontal lobe CVA 3. Dysphagia 4. Symptomatic right ICA stenosis 5. New onset paroxysmal A-fib 6. Hypokalemia 7. Hypomagnesemia 8. Normocytic anemia 9. Hypertension 10. 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 Patient was admitted to the hospital for multiple CVA events. CTA of the head and neck at the time of the admission showed right parietal occipital CVA and 70% right ICA stenosis. Repeat CT of the head on 04/24/2024 showed a new right lateral frontal lobe CVA. Patient also had paroxysmal A-fib as well as newly diagnosed cardiomyopathy with ejection fraction of 35 to 40%. During this admission, cardiology and neurology were consulted. Patient continued to show mild improvement in physical strength however still requires licensed occupational therapy assistant with ADLs. Patient requires near total assistance with feeding. Plan of care has been discussed with patient's POA who agrees that patient to be discharged for hospice care. Patient to be discharged on Protonix 40 mg p.o. daily and metoprolol succinate 50 mg p.o. daily Patient is provided with instructions/handouts on hospice and stroke Vital signs reviewed. General: non toxic, no distress, appears at stated age, normal weight Derm: no unusual rashes/lesions, warm Head: atraumatic, normocephalic, symmetric Eyes: EOMI, no lid lag, anicteric sclera, pupils equal round reactive to light Cardiovascular: S1S2 irreg, no murmur, positive dorsalis pedis pulse bilateral, no edema Lungs: CTA bilateral, no rhonchi, no rales, no accessory muscle use Abdominal: soft, nontender to palpation, no guarding Neuro: Left facial droop. Strength 3/5 bilateral LE, 4/5 LUE and 5/5 RUE. Psych: AO x 2 A total of 35 minutes of time were spent preparing this complex discharge ez barillas. Patient was discharged on 04/28/2024 at 1057. I have seen and evaluated the patient today. Discussed with the resident and agree with the residents finding and plan as documented in the resident's note. Changes highlighted in blue font. Patient Condition at Discharge: Poor Plan - Discharge Summary New Discharge Prescriptions: New Pantoprazole [Protonix] 40 mg PO AC-BRKFST #60 tab Metoprolol Succinate (ER) [Toprol XL] 50 mg PO DAILY #60 tab Discontinued Aspirin 81 mg PO DAILY Metoprolol Tartrate [Lopressor] 50 mg PO BID Discharge Medication List Metoprolol Succinate (ER) [Toprol XL] 50 mg PO DAILY #60 tab 04/28/24 [Rx] Pantoprazole [Protonix] 40 mg PO AC-BRKFST #60 tab 04/28/24 [Rx] Patient Instructions/Handouts: Hospice (DC), Stroke (DC) Discharge Disposition: OTHER INSTITUTION NOT DEFINED
[2024-04-28 16:25] VITALS: BP 109/62; PULSE 63; RESP 22; TEMP 98.2
[2024-04-29] MEDS ORDERED: METOPROLOL SUCCINATE (ER) 50 MG TAB.ER.24H PO SCH (09:00)
--- NOTE | 2024-05-12 11:36 | XR ---
Patient: Donis Marin Ordering Physician: Unknown, Unknown ID: [id number] Phone, Pager: Phone: N /A Pager: N/A : [phone] Age/Gender: 83Y, M Primary Location: N/A Procedure: XR Chest 1 View Port able Study Date: 04/16/2024 5:16:00 PM EXAMINATION TYPE: XR chest 1V DATE OF EXAM: 04/16/2024 HISTORY: Shortness of breath. COMPARISON: 02/25/22 TECHNIQUE: Single view of the chest is submitted. FINDINGS: Demonstrated are scattered senescent parenchymal change. There is increased hazy opacity overlying the right lung field may reflect layering effusion. Patchy density left hilar region. The heart is stable. Hilar and mediastinal structures are within normal limits. Degenerative changes are seen of the dorsal spine. IMPRESSION: 1. As above
== END 2024-04-28 17:30 | disposition hospice, home (50) | DRG 65 ==
LOC: 3SCARD 18:17 → UNDOADMIN 19:55 → 3SCARD 19:55 → UNDODISIN 19:55 → 3SCARD 04-24 14:52 → UNDODISIN 04-28 17:30
PROVIDERS: ADMIT Family Medicine; ATTEND Family Medicine
DX: I63.531 Cerebral infarction due to unspecified occlusion or stenosis of right posterior cerebral artery (principal); E87.0 Hyperosmolality and hypernatremia; I42.8 Other cardiomyopathies; E87.20 Acidosis, unspecified; F03.93 Unspecified dementia, unspecified severity, with mood disturbance; I65.21 Occlusion and stenosis of right carotid artery; R13.10 Dysphagia, unspecified; R29.810 Facial weakness; Z51.5 Encounter for palliative care; F03.90 Unspecified dementia, unspecified severity, without behavioral disturbance, psychotic disturbance, mood disturbance, and anxiety; R47.81 Slurred speech; R29.713 NIHSS score 13; Z66 Do not resuscitate; I48.0 Paroxysmal atrial fibrillation; I50.9 Heart failure, unspecified; I05.0 Rheumatic mitral stenosis; G83.24 Monoplegia of upper limb affecting left nondominant side; I11.0 Hypertensive heart disease with heart failure; D64.9 Anemia, unspecified; E83.42 Hypomagnesemia; E87.6 Hypokalemia; I25.10 Atherosclerotic heart disease of native coronary artery without angina pectoris; Z79.01 Long term (current) use of anticoagulants; Z79.82 Long term (current) use of aspirin; Z79.899 Other long term (current) drug therapy; Z71.3 Dietary counseling and surveillance
CPT/HCPCS: 70450; 70496; 70498; 71045; 74230; 80048; 80053; 80061; 83036; 83735; 85025; 85610; 85730; 93005; 94760; 99291